=== PATIENT | female | born 1940 | race African-American/Black ===

== ENCOUNTER 2017-05-06 18:03 | Inpatient (IN) | payer OTHER ==
[~2017-05-06] VITALS: Ht 172.7 cm; Wt 103.5 kg
[2017-05-06] VITALS (20 sets, daily range): BP systolic 70–129; BP diastolic 29–78
--- NOTE | ~2017-05-06 | EKG ---
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 : 1940 Requested By: Boaz Resendiz Order Number: [id number] MD: Alban Ignacio Measurements Intervals [place] Rate: 55 P: 21 [place]: 200 QRS: -20 QRSD: 105 T: 9 QT: 438 QTc: 419 Interpretive Statements Sinus rhythm Atrial premature complexes Left ventricular hypertrophy Compared to ECG 02/26/2004 11:19:05 Atrial premature complex(es) now present Left ventricular hypertrophy now present ST (T wave) deviation now present Sinus bradycardia no longer present Poor R-wave progression no longer present Electronically Signed On 05-06-2017 21:58:50 BUSINESS CONTINUITY SPECIALIST by Alban Ignacio [email or web address] <ELECTRONICALLY SIGNED> By: Alban Ignacio MD 05/06/17 2158 [id number] 20 Alban Ignacio MD /EPI
--- NOTE | ~2017-05-06 | HC ---
[facility] [place] [address] CONSULTATION Name: SHARRON DIETRICH Room #: 243-P ADM IN M.R.#: [id number] Admission: 05/06/17 Attend Phys: Vic Munguia MD Discharge: Date of : 42 Report #: [id number] THIS REPORT FOR: //name// CC: Boaz Munguia MD DATE OF SERVICE: 05/07/2017 REFERRING PROVIDER: Dr. Vic Munguia. REASON FOR CONSULTATION: Severe sepsis. CHIEF COMPLAINT: Altered mental status. HISTORY OF PRESENT ILLNESS: Our group was asked to evaluate this patient in consultation while hospitalized at [facility]. She is unable to give any history. History taken from review of records, discussion with healthcare providers, a 76-year-old woman recently hospitalized here 1 month ago, presented to the Emergency Department from her longterm facility for altered mental status. The patient apparently may have been having some nausea and vomiting. Initially admitted for possible urinary tract infection with severe sepsis. The patient noted to be hypotensive in the Emergency Department but without an elevated lactate level. Chest radiograph was clear because of altered mental status. A CT scan of the head was performed which revealed no acute process. Apparently overnight, has been resuscitated with IV fluids with some improvement in overall renal function, stable lactate, but still requiring some low amount of IV vasopressors to maintain reasonable blood pressure. The patient never developed bandemia to this point. ALLERGIES: INCLUDE HYDROCODONE, NONSTEROIDAL ANTI-INFLAMMATORIES, PSEUDOEPHEDRINE. PAST MEDICAL HISTORY: 1. Diabetes mellitus type 2. 2. Diabetic nephropathy. 3. Hypertension. 4. Obesity. 5. Chronic renal insufficiency. PAST SURGICAL HISTORY: Includes tubal ligation, left knee arthroplasty. SOCIAL HISTORY: Not currently obtainable due to current status. FAMILY HISTORY: Unobtainable due to current status. [facility] [address] [place] [address] CONSULTATION Name: SHARRON DIETRICH Room #: 243-P [facility] IN [facility].#: [id number] Admission: 05/06/17 Attend Phys: Vic Munguia MD Discharge: Date of : 42 Report #: [id number] REVIEW OF SYSTEMS: Otherwise, unobtainable due to current status, although she denies any pain. PHYSICAL EXAMINATION: VITAL SIGNS: Afebrile, pulse 60, respiratory rate 12, blood pressure 140/50, oxygen saturation 100% on nasal cannula. GENERAL: This is an obese, elderly woman, does not appear in any distress, awake but confused. ENT: Clear oropharynx, Mallampati 3 airway. No oral lesions. NECK: Supple, no lymphadenopathy, no thyromegaly. LUNGS: Diminished with minimal left basilar crackles. No wheezes. CARDIOVASCULAR: Heart was regular. No murmurs noted. ABDOMEN: Soft, nontender, no masses, no hepatosplenomegaly. EXTREMITIES: Warm with no significant edema. 2+ pulses were noted. INTEGUMENT: No significant rash noted. LABORATORY DATA: Sodium 137, potassium 5.0, chloride 108, bicarbonate 20, BUN 74, creatinine 2.8, glucose 184. Albumin 1.9. INR 1.2. CBC revealed white blood cell count 9600, hemoglobin 10, hematocrit 32, platelet count 168. Urinalysis with a greater than 25 white blood cells per high power field, arterial blood gas this morning on BiPAP revealed pH 7.29, pCO2 of 36, pO2 136, bicarbonate 17. Reviewing the laboratories, TSH in March was 3.37. IMPRESSION: 1. Systemic inflammatory response syndrome, presumed secondary to urosepsis. 2. Urinary tract infection. 3. Confusion, unclear what baseline is. 4. Metabolic acidosis without lactate elevation with an appropriate respiratory component suggesting some underlying hypoventilation as well, likely due to current status. 5. Acute renal insufficiency. SUGGESTIONS: 1. Antibiotics per Infectious Disease service. 2. Continue with sepsis protocol. 3. Check echocardiogram. 4. Titrate FiO2. 5. Follow up arterial blood gases. 6. Neurology repeat evaluation. 7. Echocardiogram. 8. Continue with IV fluids. There is nothing to suggest any underlying pulmonary edema. 9. Central venous access. 10. [place] [address] CONSULTATION Name: SHARRON DIETRICH Room #: 243-P [facility] IN M.R.#: [id number] Admission: 05/06/17 Attend Phys: Vic Munguia MD Discharge: Date of : 42 Report #: [id number] Total critical care time 40 minutes, not including procedures, discussed with nursing and Dr. Boaz Farris. By: [id number] Sam Koroma MD /nt
--- NOTE | ~2017-05-06 | HC ---
[facility] [place] [address] CONSULTATION Name: SHARRON DIETRICH Room #: 243-P [facility] IN M.R.#: [id number] Admission: 05/06/17 Attend Phys: Vic Munguia MD Discharge: Date of : 42 Report #: [id number] THIS REPORT FOR: //name// CC: Dex Munguia REASON FOR CONSULTATION: I was asked to evaluate concerning septic shock. HISTORY OF PRESENT ILLNESS: The patient was a 76-year-old [facility] resident who was hospitalized here on 03/23/2017 with hypertensive encephalopathy and seizure disorder. She does have underlying dementia. She also had paraproteinemia. [facility] following her [facility]. Last evening, was noted to have some nausea and vomiting. No other complaints. Presented through the emergency room with encephalopathy. Her oxygen saturation was adequate on 2 liters of O2 supplementation. No active seizures were identified. No further vomiting. She had decreased urine output. Received IV fluid resuscitation and transferred to the intensive care unit. She has been on low dose Levophed overnight. Urine output has been low. Mental status has improved. She has had loose nonproductive cough. No further nausea or vomiting. ALLERGIES: PSEUDOEPHEDRINE, HYDROCODONE, NONSTEROIDAL ANTI-INFLAMMATORIES. MEDICATIONS: As noted on her MAR, now on vancomycin and Zosyn. She did receive one dose of Levaquin. PAST MEDICAL HISTORY: Hypertension, diabetes, hyperlipidemia, nephrotic syndrome, left total knee arthroplasty. FAMILY HISTORY: Noncontributory. SOCIAL HISTORY: [facility] resident, otherwise no further details. REVIEW OF SYSTEMS: As noted above. PHYSICAL EXAMINATION: VITAL SIGNS: Currently afebrile and hemodynamically stable. GENERAL: She was arousable and able to follow simple commands. She was confused. Obese. SKIN: Unremarkable. LYMPH: Unremarkable. HEENT: Unremarkable. NECK: Supple. LUNGS: Few crackles in the left base posteriorly. HEART: Regular, without murmur. ABDOMEN: Soft, nontender, no hepatosplenomegaly or mass. She had indwelling Leonard catheter. [facility] [address] [place] [address] CONSULTATION Name: SHARRON DIETRICH Room #: 243-P [facility] IN .R.#: [id number] Admission: 05/06/17 Attend Phys: Vic Munguia MD Discharge: Date of : 42 Report #: [id number] EXTREMITIES: Unremarkable. LABORATORY STUDIES: Sodium 137, potassium 5, bicarbonate 21, creatinine 2.8. Liver function tests normal. INR 1.2. Hemoglobin 10, platelet count 168,000, WBC 9.6, 33% segs, 21% bands. Procalcitonin was 0.36. Urinalysis, pyuria and bacteriuria. Blood and urine cultures are pending. Lactate was 1.1. pO2 on 2 liters was 136, pCO2 35, pH 7.28. Chest x-ray was clear. Ultrasound of the kidneys is pending. IMPRESSION AND PLAN: A 76-year-old [facility] resident with septic shock, likely related to urinary tract infection. She has encephalopathy, but no evidence of seizure disorder. She is actually more alert and responsive than when I saw her last. She may have aspirated and will need followup chest x-ray to further evaluate this. Recommend continuing IV antibiotic therapy with vancomycin and Zosyn adjusted for her acute renal failure. We will follow her creatinine and nephrology recommendations. We will adjust her antibiotics pending culture results. <ELECTRONICALLY SIGNED> By: Boaz Farris MD 05/08/17 0737 0842 1854 Boaz Farris MD /nt
--- NOTE | ~2017-05-06 | HC ---
[facility] [place] [address] CONSULTATION Name: SHARRON DIETRICH Room #: 202-P ADM IN M.R.#: [id number] Admission: 05/06/17 Attend Phys: Vic Munguia MD Discharge: Date of : 42 Report #: [id number] THIS REPORT FOR: //name// CC: Dex Munguia DATE OF SERVICE: 05/07/2017 REASON FOR CONSULTATION: Alwxy-ur-sdyfsrp kidney disease. HISTORY OF PRESENT ILLNESS: The patient is quite well known to our service, was seen and followed during her most recent hospitalization here in February and March of this year. She had previously been hospitalized at [facility] with a dramatic illness characterized by dramatic change in mental status, which had been more or less of subacute. She was felt to have either meningitis or encephalitis, possibly later and never did recover from that illness. She ended up with a PEG tube had feedings. She became alert, but not oriented, very very marginal mental status. She was eventually discharged to a facility, urinary catheter in place, apparently has had deterioration over the last couple of days, was taken to the emergency room, found to have urinary tract infection with marked hypotension, felt to be septic, admitted to ICU. She was given 3 liters of IV fluids initially, given fluids and antibiotics, appropriate cultures were taken. She was seen in the ER. Baseline creatinine 1.82, she was up to 3.7, now coming down. Also had mild hyperkalemia. PAST MEDICAL HISTORY: She has no biopsy-proven nephrotic range diabetic nephropathy for many years, but has been remarkably stable. She has had hypertension and morbid obesity, apparently had reasonably normal mental status before this illness which occurred earlier this full. SOCIAL HISTORY: Living at home previously and now in a facility. No cigarettes or alcohol. REVIEW OF SYSTEMS: Cannot be taken due to her chronic confusion. FAMILY HISTORY: Noncontributory. PHYSICAL EXAMINATION: GENERAL: Overweight and confused patient, appears a bit anxious. SKIN: Unremarkable. SKELETAL: Rather obese, well developed, well nourished. HEENT: Extraocular movements appear to be full. No scleral icterus was present. Hearing and vision appeared to be intact. Mucous membranes dry. NECK: Supple without neck vein distention. [facility] [address] [place] [address] CONSULTATION Name: SHARRON DIETRICH Room #: 202-P [facility] IN M.R.#: [id number] Admission: 05/06/17 Attend Phys: Vic Munguia MD Discharge: Date of : 42 Report #: [id number] CHEST: Shows slightly coarse breath sounds. HEART: Regular but distant. ABDOMEN: Soft and nontender. PEG tube in place. EXTREMITIES: Show no peripheral edema. Warm and dry. Peripheral pulses are diminished. LABORATORY DATA: Hemoglobin is 10.1, white count 9.6. She did have 21% bands. Urinalysis was quite remarkable with 3+ leukocytes on dipstick, loaded with bacteria as well. Initial blood chemistries showed potassium of 5, creatinine 3.6, BUN 82. Again the creatinine up from baseline of about 1.8. Transaminases were not elevated. ASSESSMENT AND PLAN: 1. Urinary sepsis. She appears to have urinary sepsis with hypotension. She has been appropriately treated with cultures, antibiotics and IV fluids. She has stabilized. She has been given Levophed. Blood pressure has been stabilized, it is being tapered currently. Presumably she will continue to improve and will certainly follow her along with you. 2. Underlying diabetic nephropathy with chronic kidney disease. Treated with several medications. 3. History of seizures, on valproate. 4. Profound mental status deterioration, unknown etiology, over the last couple of months. 5. Remote left total knee replacement. 6. History of peripheral neuropathy from diabetes. <ELECTRONICALLY SIGNED> By: Dean Sterling MD 05/15/17 1237 0651 1205 Dean Sterling MD /nt
--- NOTE | ~2017-05-06 | 2DMMODE ---
[facility] [address] [facility] [place] [address] 2 D/M-MODE ECHOCARDIOGRAM Name: SHARRON DIETRICH Room #: 236-P [facility] IN ..#: [id number] Admission: 05/06/17 Attend Phys: Vic Munguia MD Discharge: Date of : 42 Date of Service: 05/07/17 1348 Report #: [id number] THIS REPORT FOR: //name// APPROVED REPORT Study performed: 05/07/2017 12:18:46 EXAM: Comprehensive 2D, Doppler, and color-flow Echocardiogram Patient Location: ICU Room #: [facility] Status: routine BSA: 2.15 BP: 140/50 mmHg Other Information Study Quality: Technically Difficult Technically limited study due to inability to position patient, uncooperative patient, patient mental status. Indications Hypotension Diabetes Sepsis 2D Dimensions RVDd: 36.79 mm LVEF(%): 78.81 (>50%) IVSd: 14.21 (7-11mm) LVOT Diam: 21.43 (18-24mm) LVDd: 36.98 mm PWd: 12.67 (7-11mm) Ascending Ao: 30.01 (22-36mm) LVDs: 19.74 (25-40mm) Aortic Root: 33.24 mm IVC: 9.00 mm Stewart's LVEF: 78.81 % Volumes Left Atrial Volume (Systole) Single Plane 4CH: 56.70 mL Single Plane 2CH: 58.50 mL LA ESV Index: 29.00 mL/m2 Aortic Valve AoV Peak Morteza.: 2.20 m/s AO Peak Gr.: 19.34 mmHg LVOT Max P.60 mmHg AO Mean Gr.: 9.03 mmHg LVOT Mean P.70 mmHg AO V2 Mean: 1.41 m/s LVOT Max V: 1.47 m/s [facility] [place] [address] 2 D/M-MODE ECHOCARDIOGRAM Name: SHARRON DIETRICH Room #: 236-P [facility]..#: [id number] Admission: 05/06/17 Attend Phys: Vic Munguia MD Discharge: Date of : 42 Date of Service: 05/07/17 1348 Report #: [id number] V2 VTI: 43.83 cm LVOT Mean V: 0.87 m/s MORGAN (VTI): 2.89 cm2 LVOT V1 VTI: 35.16 cm MORGAN Vmax: 2.40 cm2 SV (LVOT): 126.76 mL Mitral Valve E/A Ratio: 0.8 MV Decel. Time: 294.21 ms MV E Max Morteza.: 1.21 m/s MV A Morteza.: 1.44 m/s MV PHT: 85.32 ms IVRT: 86.51 ms Pulmonary Valve PV Peak Morteza.: 1.70 m/s PV Peak Gr.: 11.53 mmHg Pulmonary Vein P Vein S: 0.88 m/s P Vein A: 0.21 m/s P Vein D: 0.49 m/s P Vein A Dur.: 124.6 msec P Vein S/D Ratio: 1.80 Tricuspid Valve TR Peak Morteza.: 2.93 m/s RAP Estimate: 5.00 mmHg TR Peak Gr.: 34.37 mmHg Left Ventricle The left ventricle is normal size. Mild concentric left ventricular hypertrophy. The left ventricular systolic function is normal. The left ventricular ejection fraction is within the normal range. LVEF is 60%. Mild diastolic dysfunction is present (impaired relaxation pattern). Right Ventricle Right ventricle is mildly dilated. Right ventricular systolic function could not be assessed. Atria Left atrium is at the upper limits of normal. The right atrium size is normal. Aortic Valve The aortic valve is normal in structure. No aortic regurgitation is present. There is no aortic valvular stenosis. Mitral Valve The mitral valve is normal in structure. Trace to mild mitral [facility] [address] [place] [address] 2 D/M-MODE ECHOCARDIOGRAM Name: SHARRON DIETRICH Room #: 236-P [facility] IN M.R.#: [id number] Admission: 05/06/17 Attend Phys: Vic Munguia MD Discharge: Date of : 42 Date of Service: 05/07/17 1348 Report #: [id number] regurgitation. No evidence of mitral valve stenosis. Tricuspid Valve The tricuspid valve is normal in structure. Mild tricuspid regurgitation. PAP is estimated at 39 mmHg. Pulmonic Valve The pulmonary valve is normal in structure. Trace pulmonic regurgitation. Great Vessels The aortic root is normal in size. IVC is normal in size and collapses >50% with inspiration. Pericardium Hemodynamically insignificant pericardial effusion. <Conclusion> The left ventricle is normal size. LVEF is 60%. Right ventricle is mildly dilated. Left atrium is at the upper limits of normal. The aortic valve is normal in structure. The mitral valve is normal in structure. Trace to mild mitral regurgitation. The tricuspid valve is normal in structure. Mild tricuspid regurgitation. PAP is estimated at 39 mmHg. The pulmonary valve is normal in structure. Trace pulmonic regurgitation. Hemodynamically insignificant pericardial effusion. <ELECTRONICALLY SIGNED> By: Jeb Gonzalez MD 05/07/17 1348 1348 1348 Jeb Gonzalez MD /INF
[~2017-05-06 18:03] MED LIST: ALDACTONE25 MG PO; ASPIRIN81 M2 PO; COMPAZINE25 MG RECTAL; COREG25 MG PO; DEPACON 50500 MG/51 IV; DEPAKOTE 250MG250 M1 IV; DIOVAN320 MG PO; EFFEXOR XR37.5 MG PO; ENOXAPARIN30 MG/0.1 SUBQ; FAMOTIDINE 20 M20 MG PO; FELODIPINE ER10 MG PER TUBE; GABAPENTIN 100100 MG PO; HUMALOG100 UNIT/1 SUBQ; HYDRALAZIN20 MG/1 ML IV; LABETALOL20 MG/4 ML IV; LAXATIVE5 M1 PO; LEVEMIR SUBQ; LIPITOR 20 MG T20 M1 PO; NOVOLOG100 UNIT/1 SUBQ; NYAMYC15 GM TOP; PERCOCET 7.5-31 EACH PO; PIOGLITAZONE15 MG PO; VITAMIN D3400 UNIT PO
[2017-05-06 18:33] LABS: HEMOGLOBIN 9.7 gm/dL (12.0-15.0); MCH 28.6 pg (26.0-34.0); MCHC 32.2 g/dL (28.0-37.0); MCV 88.9 fL (80.0-100.0); PLATELET COUNT 172 thou/uL (150-400); RBC 3.38 mil/uL (4.20-5.00); RDW 16.9 % (10.5-14.5); WBC 8.4 thou/uL (4.0-11.0)
[2017-05-06 18:34] LABS: MANUAL DIFF YES
[2017-05-06 18:46] LABS: ANION GAP 7 mmol/L (7-16); BUN 82 mg/dL (7-18); CHLORIDE 104 mmol/L (98-107); CO2 25 mmol/L (21-32); CREATININE 3.6 mg/dL (0.6-1.0); GLUCOSE 53 mg/dL (74-106); SODIUM 136 mmol/L (136-145)
[2017-05-06 18:53] LABS: URINE BILIRUBIN NEGATIVE (Negative); URINE BLOOD 2+ (Negative); URINE COLOR YELLOW; URINE GLUCOSE-RANDOM* NEGATIVE (Negative); URINE KETONES NEGATIVE (Negative); URINE PROTEIN (DIPSTICK) 2+ (Negative); URINE UROBILINOGEN 0.2 E.U./dl (0.2-1.0)
[2017-05-06 18:54] LABS: ALBUMIN 1.9 g/dL (3.4-5.0); ALKALINE PHOSPHATASE 143 U/L (46-116); MAGNESIUM 2.9 mg/dL (1.8-2.4); SGOT 15 U/L (15-37); SGPT 9 U/L (30-65); TOTAL BILIRUBIN 0.2 mg/dL (<0.1-1.0); TOTAL PROTEIN 6.7 g/dL (6.4-8.2); TROPONIN-I < 0.04 ng/mL (<0.06)
[2017-05-06 18:55] LABS: URINE LEUKOCYTES-REFLEX 3+ (Negative)
[2017-05-06 18:58] LABS: ABSOLUTE NEUTROPHILS 4.5 thou/uL (1.4-8.2); METAMYELOCYTES 3 %; MYELOCYTES 2 %; PROMYELOCYTES 2 %; TOTAL CELL COUNT 100
[2017-05-06 18:59] LABS: ANISOCYTOSIS 1+; LARGE PLATELETS FEW; MICROCYTES SLIGHT; POLYCHROMASIA SLIGHT
[2017-05-06 19:01] LABS: AMP/METHAMP Negative (Negative); BARBITURATES Negative (Negative); BENZODIAZEPINES Negative (Negative); COCAINE Negative (Negative); METHADONE Negative (Negative); OPIATES Negative (Negative); PCP Negative (Negative); THC Negative (Negative)
[2017-05-06 19:04] LABS: SQUAMOUS 0-3 Few /LPF (0-3)
[2017-05-06 19:05] LABS: AMORPHOUS URATES Many /LPF (None Seen); CASTS None Seen /LPF (None Seen); URINE WBC-REFLEX >25 Many /HPF (0-5)
[2017-05-06 21:25] LABS: ABG SAMPLE TYPE ARTERIAL; BE(vivo) -9.3 mmol/L (-2 to +3); HCO3 18.2 mmol/L (22.0-26.0); LACTATE 0.98 mmol/L (0.5-2.0); O2(CT) 12.4 mL/dL (15.0-23.0); O2Hb 90.5 % (92.0-98.0); PCO2 47.1 mmHg (35.0-45.0); PO2 67.2 mmHg (80.0-100.0); sO2 89.1 % (92.0-98.0); tCO2 19.6 mmol/L (24.0-30.0)
[2017-05-06 21:26] LABS: STICK SITE R.RADIAL; pH 7.205 (7.360-7.450)
[2017-05-06 22:59] LABS: CALCIUM 8.2 mg/dL (8.5-10.1)
[2017-05-06 23:09] LABS: FIBRINOGEN 285.4 mg/dL (210-360); INR 1.2
[2017-05-06 23:48] LABS: ABG SAMPLE TYPE ARTERIAL; BE(vivo) -11.1 mmol/L (-2 to +3); HCO3 15.9 mmol/L (22.0-26.0); LACTATE 1.03 mmol/L (0.5-2.0); O2(CT) 14.1 mL/dL (15.0-23.0); O2Hb 95.8 % (92.0-98.0); PO2 106.5 mmHg (80.0-100.0); sO2 96.9 % (92.0-98.0); tCO2 17.2 mmol/L (24.0-30.0)
[2017-05-06 23:50] LABS: FIO2 30 %; STICK SITE R.RADIAL; TIDAL VOLUME 500 ml; pH 7.218 (7.360-7.450)
[2017-05-07] VITALS (52 sets, daily range): BP systolic 82–166; BP diastolic 43–105
[2017-05-07 02:37] LABS: HEMATOCRIT 32.4 % (37.0-47.0); HEMOGLOBIN 10.1 gm/dL (12.0-15.0); MCH 28.2 pg (26.0-34.0); MCHC 31.1 g/dL (28.0-37.0); MCV 90.6 fL (80.0-100.0); PLATELET COUNT 168 thou/uL (150-400); RBC 3.57 mil/uL (4.20-5.00); RDW 16.6 % (10.5-14.5); WBC 9.6 thou/uL (4.0-11.0)
[2017-05-07 02:43] LABS: CREATININE 2.8 mg/dL (0.6-1.0); MANUAL DIFF YES; POTASSIUM 5.3 mmol/L (3.5-5.1)
[2017-05-07 02:49] LABS: APTT 31.2 Seconds (24.5-32.8); FIBRINOGEN 338.1 mg/dL (210-360); INR 1.2; PROTIME 12.3 Seconds (9.3-11.4)
[2017-05-07 05:51] LABS: ABG SAMPLE TYPE ARTERIAL; BE(vivo) -9.3 mmol/L (-2 to +3); HCO3 16.5 mmol/L (22.0-26.0); LACTATE 1.14 mmol/L (0.5-2.0); O2(CT) 14.1 mL/dL (15.0-23.0); O2Hb 97.1 % (92.0-98.0); PCO2 35.5 mmHg (35.0-45.0); PO2 136.3 mmHg (80.0-100.0); sO2 98.4 % (92.0-98.0); tCO2 17.6 mmol/L (24.0-30.0)
[2017-05-07 05:52] LABS: pH 7.285 (7.360-7.450)
[2017-05-07 05:53] LABS: FIO2 30 %; STICK SITE R.BRACHIAL; TIDAL VOLUME 340 ml
[2017-05-07 07:53] LABS: CALCIUM 8.2 mg/dL (8.5-10.1); CREATININE 2.8 mg/dL (0.6-1.0)
[2017-05-07 08:01] LABS: APTT 30.6 Seconds (24.5-32.8); FIBRINOGEN 326.2 mg/dL (210-360); INR 1.2; PROTIME 12.4 Seconds (9.3-11.4)
[2017-05-07 08:10] LABS: ABSOLUTE NEUTROPHILS 7.3 thou/uL (1.4-8.2); METAMYELOCYTES 5 %; MYELOCYTES 2 %; TOTAL CELL COUNT 100
[2017-05-07 08:11] LABS: ANISOCYTOSIS 1+
[2017-05-07 18:00] LABS: ABG SAMPLE TYPE ARTERIAL; BE(vivo) -11.4 mmol/L (-2 to +3); HCO3 13.8 mmol/L (22.0-26.0); LACTATE 1.23 mmol/L (0.5-2.0); O2(CT) 14.1 mL/dL (15.0-23.0); O2Hb 93.8 % (92.0-98.0); PCO2 29.1 mmHg (35.0-45.0); PO2 74.8 mmHg (80.0-100.0); pH 7.294 (7.360-7.450); sO2 93.8 % (92.0-98.0); tCO2 14.7 mmol/L (24.0-30.0)
[2017-05-07 18:01] LABS: STICK SITE R.BRACHIAL
[2017-05-08] VITALS (15 sets, daily range): BP systolic 109–162; BP diastolic 48–118
[2017-05-08 04:57] LABS: HEMATOCRIT 28.6 % (37.0-47.0); HEMOGLOBIN 9.1 gm/dL (12.0-15.0); MCH 28.5 pg (26.0-34.0); MCHC 31.9 g/dL (28.0-37.0); MCV 89.1 fL (80.0-100.0); PLATELET COUNT 164 thou/uL (150-400); RBC 3.21 mil/uL (4.20-5.00); RDW 16.9 % (10.5-14.5); WBC 10.4 thou/uL (4.0-11.0)
[2017-05-08 05:06] LABS: ALBUMIN 1.5 g/dL (3.4-5.0); CALCIUM 8.4 mg/dL (8.5-10.1); CREATININE 2.3 mg/dL (0.6-1.0); MANUAL DIFF YES; POTASSIUM 5.1 mmol/L (3.5-5.1)
[2017-05-08 07:31] LABS: ANISOCYTOSIS 1+; METAMYELOCYTES 3 %; MYELOCYTES 4 %; TOTAL CELL COUNT 100
[2017-05-08 07:33] LABS: POLYCHROMASIA OCCASIONAL
[2017-05-09 03:54] VITALS: BP 142/73
[2017-05-09 05:30] LABS: HEMATOCRIT 26.4 % (37.0-47.0); HEMOGLOBIN 8.7 gm/dL (12.0-15.0); MCH 28.4 pg (26.0-34.0); MCHC 32.8 g/dL (28.0-37.0); MCV 86.6 fL (80.0-100.0); RBC 3.05 mil/uL (4.20-5.00); RDW 16.8 % (10.5-14.5); WBC 8.8 thou/uL (4.0-11.0)
[2017-05-09 05:42] LABS: ALBUMIN 1.4 g/dL (3.4-5.0); CALCIUM 8.4 mg/dL (8.5-10.1); CREATININE 1.9 mg/dL (0.6-1.0)
[2017-05-09 07:25] VITALS: BP 197/95
[2017-05-09 11:35] VITALS: BP 181/63
[2017-05-09 16:10] VITALS: BP 188/109
[2017-05-09 20:15] VITALS: BP 175/74
[2017-05-10 00:15] VITALS: BP 178/80
[2017-05-10 05:22] LABS: ALBUMIN 1.4 g/dL (3.4-5.0); CALCIUM 8.9 mg/dL (8.5-10.1); CREATININE 1.5 mg/dL (0.6-1.0); PHOSPHORUS 1.7 mg/dL (2.5-4.9); POTASSIUM 3.5 mmol/L (3.5-5.1)
[2017-05-10 05:30] VITALS: BP 146/69
[2017-05-10 07:30] VITALS: BP 132/79
[2017-05-10 09:10] LABS: HEMATOCRIT 28.4 % (37.0-47.0); HEMOGLOBIN 9.2 gm/dL (12.0-15.0); MCH 28.5 pg (26.0-34.0); MCHC 32.4 g/dL (28.0-37.0); MCV 87.7 fL (80.0-100.0); PLATELET COUNT 167 thou/uL (150-400); RBC 3.24 mil/uL (4.20-5.00); RDW 17.5 % (10.5-14.5); WBC 8.2 thou/uL (4.0-11.0)
[2017-05-10 09:12] LABS: MANUAL DIFF YES
[2017-05-10 09:47] LABS: ABSOLUTE NEUTROPHILS 5.9 thou/uL (1.4-8.2); METAMYELOCYTES 3 %; NUCLEATED RBCS 1 /100WBC; TOTAL CELL COUNT 100
[2017-05-10 09:48] LABS: ANISOCYTOSIS 2+; HYPOCHROMASIA 1+; POLYCHROMASIA SLIGHT
[2017-05-10 12:00] VITALS: BP 178/74
[2017-05-10 15:10] VITALS: BP 145/55
[2017-05-10 19:18] VITALS: BP 150/61
[2017-05-11 04:17] VITALS: BP 158/61
[2017-05-11 05:12] LABS: HEMATOCRIT 26.9 % (37.0-47.0); HEMOGLOBIN 8.6 gm/dL (12.0-15.0); MCH 27.9 pg (26.0-34.0); MCHC 32.1 g/dL (28.0-37.0); MCV 86.8 fL (80.0-100.0); RBC 3.1 mil/uL (4.20-5.00); RDW 17.1 % (10.5-14.5); WBC 8.8 thou/uL (4.0-11.0)
[2017-05-11 05:45] LABS: ALBUMIN 1.4 g/dL (3.4-5.0); CALCIUM 8.3 mg/dL (8.5-10.1); CREATININE 1.4 mg/dL (0.6-1.0); PHOSPHORUS 2.7 mg/dL (2.5-4.9); POTASSIUM 4.1 mmol/L (3.5-5.1)
[2017-05-11 07:10] VITALS: BP 163/75
[2017-05-11 12:00] VITALS: BP 159/75
[2017-05-11 19:52] VITALS: BP 145/62
[2017-05-12 03:04] VITALS: BP 124/58
[2017-05-12 04:55] LABS: HEMOGLOBIN 9.3 gm/dL (12.0-15.0); MCH 27.8 pg (26.0-34.0); MCV 86.9 fL (80.0-100.0); RBC 3.34 mil/uL (4.20-5.00); RDW 17.3 % (10.5-14.5); WBC 11.4 thou/uL (4.0-11.0)
[2017-05-12 05:17] LABS: ALBUMIN 1.5 g/dL (3.4-5.0); CALCIUM 8.4 mg/dL (8.5-10.1); CREATININE 1.5 mg/dL (0.6-1.0); PHOSPHORUS 2.6 mg/dL (2.5-4.9); POTASSIUM 4.5 mmol/L (3.5-5.1)
[2017-05-12 07:20] VITALS: BP 145/77
[2017-05-12 11:46] VITALS: BP 150/63
[2017-05-12 15:00] VITALS: BP 146/72
[2017-05-12 19:16] VITALS: BP 121/54
[2017-05-13 03:33] VITALS: BP 151/57
[2017-05-13 06:10] LABS: ALBUMIN 1.5 g/dL (3.4-5.0); CALCIUM 8.6 mg/dL (8.5-10.1); CREATININE 1.4 mg/dL (0.6-1.0); MAGNESIUM 1.6 mg/dL (1.8-2.4); PHOSPHORUS 3.1 mg/dL (2.5-4.9); POTASSIUM 4.4 mmol/L (3.5-5.1)
[2017-05-13 07:11] LABS: TSH 2.509 uIU/mL (0.358-3.740)
[2017-05-13 08:28] VITALS: BP 146/61
[2017-05-13 11:04] VITALS: BP 136/114
[2017-05-13 15:48] VITALS: BP 137/58
[2017-05-13 19:45] VITALS: BP 127/52
[2017-05-14 04:30] VITALS: BP 111/77
[2017-05-14 04:40] LABS: ALBUMIN 1.6 g/dL (3.4-5.0); CALCIUM 8.8 mg/dL (8.5-10.1); CREATININE 1.5 mg/dL (0.6-1.0); PHOSPHORUS 2.5 mg/dL (2.5-4.9); POTASSIUM 4.1 mmol/L (3.5-5.1)
[2017-05-14 08:00] VITALS: BP 161/92
[2017-05-14 11:07] VITALS: BP 139/60
[2017-05-14 16:00] VITALS: BP 119/46
[2017-05-14 19:45] VITALS: BP 127/54
[2017-05-15 04:30] VITALS: BP 135/41
[2017-05-15 05:17] LABS: ALBUMIN 1.5 g/dL (3.4-5.0); CALCIUM 8.6 mg/dL (8.5-10.1); CREATININE 1.7 mg/dL (0.6-1.0); PHOSPHORUS 3.1 mg/dL (2.5-4.9); POTASSIUM 4.4 mmol/L (3.5-5.1)
[2017-05-15 07:19] VITALS: BP 115/77
[2017-05-15 11:28] VITALS: BP 152/51
[2017-05-15 16:40] VITALS: BP 157/76
[2017-05-15 20:30] VITALS: BP 127/57
[2017-05-16 00:15] VITALS: BP 159/67
[2017-05-16 04:30] VITALS: BP 139/62
[2017-05-16 07:46] VITALS: BP 135/58
[2017-05-16 11:51] VITALS: BP 132/48
[2017-05-16 21:40] VITALS: BP 118/38
[2017-05-17 04:54] LABS: CALCIUM 8.7 mg/dL (8.5-10.1); CREATININE 1.6 mg/dL (0.6-1.0); POTASSIUM 4.4 mmol/L (3.5-5.1)
[2017-05-17 09:00] VITALS: BP 132/63
[2017-05-17 18:13] VITALS: BP 108/50
[2017-05-17 19:51] VITALS: BP 127/53
[2017-05-18 03:23] VITALS: BP 120/52
[2017-05-18 12:01] VITALS: BP 128/62
[2017-05-18 15:54] VITALS: BP 134/61
[2017-05-18] MEDS ORDERED: VANCOMYCIN HCL10 GM PO (16:16)
[2017-05-18] MEDS ORDERED: HUMALOG100 UNIT/1 SUBQ (16:16)
[2017-05-18] MEDS ORDERED: FLORANEX GRANU1 EACH PER TUBE (16:16)
[2017-05-18] MEDS ORDERED: GLUCAGON HCL1 MG IM (16:16)
[2017-05-18] MEDS ORDERED: PERCOCET 7.5-31 EACH PO (16:16)
[2017-05-18 18:04] VITALS: BP 134/61
== END 2017-05-18 18:56 | DRG 871 ==
LOC: ER 18:03 → EROBS 19:38 → ICU 19:38 → 2N 05-08 18:23
PROVIDERS: Emergency Medicine; Hospitalist; Internal Medicine Geriatric Medicine; Internal Medicine Nephrology; Internal Medicine Pulmonary Disease; Nurse Practitioner Family
PROC: 5A09357 Assistance with Respiratory Ventilation, Less than 24 Consecutive Hours, Continuous Positive Airway Pressure (ICD-10-PCS; principal; 2017-05-07)
PROC: 02HV33Z Insertion of Infusion Device into Superior Vena Cava, Percutaneous Approach (ICD-10-PCS; principal; 2017-05-07)
DX: A41.9 Sepsis, unspecified organism (principal); R65.21 Severe sepsis with septic shock; G93.41 Metabolic encephalopathy; E43 Unspecified severe protein-calorie malnutrition; N39.0 Urinary tract infection, site not specified; N17.9 Acute kidney failure, unspecified; E87.2 Acidosis; E87.0 Hyperosmolality and hypernatremia; A04.72 Enterocolitis due to Clostridium difficile, not specified as recurrent; I12.0 Hypertensive chronic kidney disease with stage 5 chronic kidney disease or end stage renal disease; E78.5 Hyperlipidemia, unspecified; E11.21 Type 2 diabetes mellitus with diabetic nephropathy; E11.649 Type 2 diabetes mellitus with hypoglycemia without coma; E66.01 Morbid (severe) obesity due to excess calories; Z68.34 Body mass index [BMI] 34.0-34.9, adult; E11.42 Type 2 diabetes mellitus with diabetic polyneuropathy; I95.9 Hypotension, unspecified; N18.3 Chronic kidney disease, stage 3 (moderate); E11.22 Type 2 diabetes mellitus with diabetic chronic kidney disease; D64.9 Anemia, unspecified; E87.5 Hyperkalemia; E83.39 Other disorders of phosphorus metabolism; D47.2 Monoclonal gammopathy; R13.10 Dysphagia, unspecified; E83.41 Hypermagnesemia; F03.90 Unspecified dementia, unspecified severity, without behavioral disturbance, psychotic disturbance, mood disturbance, and anxiety; Z23 Encounter for immunization; Z88.6 Allergy status to analgesic agent; Z88.8 Allergy status to other drugs, medicaments and biological substances; Z98.49 Cataract extraction status, unspecified eye
CPT/HCPCS: 10078; 10081; 27000

== ENCOUNTER 2017-06-29 08:52 | Inpatient (IN) | payer OTHER ==
[~2017-06-29] VITALS: Ht 167.6 cm; Wt 99.2 kg
[2017-06-29] VITALS (34 sets, daily range): BP systolic 76–151; BP diastolic 34–84
--- NOTE | ~2017-06-29 | EKG ---
[address] [place] [address] ELECTROCARDIOGRAM REPORT Name: SHARRON DIETRICH Room #: 170-5 ADM IN M.R.#: [id number] Admission: 06/29/17 Attend Phys: Dex Anderson DO Discharge: Date of : 42 Report #: [id number] THIS REPORT FOR: //name// [facility] ED Test Date: 2017-06-29 Test Time: 10:47:10 Pat Name: SHARRON DIETRICH Department: Room: 170 Gender: F Lead Cook: SIXTO : 1940 Requested By: Syed Miramontes Order Number: [id number] MD: Alban Ignacio Measurements Intervals [place] Rate: 82 P: 48 [place]: 180 QRS: -25 QRSD: 100 T: 67 QT: 352 QTc: 411 Interpretive Statements Sinus rhythm Borderline left axis deviation Compared to ECG 05/06/2017 18:21:46 Atrial premature complex(es) no longer present Left ventricular hypertrophy no longer present Electronically Signed On 06-29-2017 11:08:14 ALUM MIXER by Alban Ignacio [email or web address] <ELECTRONICALLY SIGNED> By: Alban Ignacio MD 06/29/17 1108 1047 1047 Alban Ignacio MD /DAY
--- NOTE | ~2017-06-29 | HC ---
[facility] [place] [address] CONSULTATION Name: SHARRON DIETRICH Room #: 247-P [facility] IN M.R.#: [id number] Admission: 06/29/17 Attend Phys: Dex Anderson DO Discharge: Date of : 42 Report #: [id number] THIS REPORT FOR: //name// CC: Dex Anderson DATE OF SERVICE: 06/29/2017 REFERRING PROVIDER: Dr. Dex Anderson. REASON FOR CONSULTATION: Respiratory failure. HISTORY OF PRESENT ILLNESS: Our group was asked to see the patient in consultation while hospitalized at [facility]. The patient on mechanical ventilator, unable to give any history. This 76-year-old woman without any significant past pulmonary history, apparently has a history of chronic dysphagia, has a feeding tube in place, had been lethargic, vomiting in the Emergency Department, possibly even aspirating. The patient was subsequently intubated and is now on mechanical ventilatory support, receiving IV fluid, starting to be more arousable, but not following commands, noted to be in acute renal insufficiency in the Emergency Department. No other history is able to be obtained from the patient at this time. Rest of the history taken from review of the records. ALLERGIES: INCLUDE PSEUDOEPHEDRINE, SULFA, HYDROCODONE, NONSTEROIDAL ANTI-INFLAMMATORIES. PAST MEDICAL HISTORY: 1. Diabetes mellitus type 2. 2. Anemia. 3. History of dysphagia. 4. Hyperlipidemia. 5. Chronic renal insufficiency. 6. Hypertension. OUTPATIENT MEDICATIONS: Include Depakote, aspirin, atorvastatin, carvedilol, Pepcid, gabapentin, oxycodone, Effexor, and vitamin E. SOCIAL HISTORY: The patient currently is a resident of a long-term care facility. No alcohol or tobacco use known. FAMILY HISTORY: Unobtainable. REVIEW OF SYSTEMS: Otherwise unobtainable. PHYSICAL EXAMINATION: VITAL SIGNS: The patient is afebrile, pulse 70s, respiratory rate 16, blood [facility] [address] [place] [address] CONSULTATION Name: SHARRON DIETRICH Room #: [facility] IN [facility].#: [id number] Admission: 06/29/17 Attend Phys: Dex Anderson DO Discharge: Date of : 42 Report #: [id number] pressure 90/40. GENERAL: This is an elderly woman on vent, arousable, no distress. ENT: Endotracheal tube in place. NECK: Supple, no lymphadenopathy. LUNGS: Coarse rhonchi, improved with suctioning. CARDIOVASCULAR: Heart regular. No murmurs or gallops. ABDOMEN: Soft. PEG tube in place. No masses. EXTREMITIES: With muscular atrophy noted, only trace edema. LABORATORY DATA: White blood cell count 14,000, hemoglobin 12, hematocrit 32, platelet count 155. Sodium 128, potassium 5.7, chloride 96, bicarbonate 22, BUN 61, creatinine 3.4, glucose 323. IMAGING: Chest x-ray reveals endotracheal tube in good position. Some patchy bilateral pulmonary infiltrates also appreciated, suggested to be either possible aspiration or pneumonia. Rapid influenza screen is negative. IMPRESSION: 1. Pneumonia, possible aspiration. 2. Acute respiratory failure. 3. Altered mental status. 4. Acute renal insufficiency, likely volume depletion. 5. Nausea, vomiting, question acute abdominal process, but nothing on exam. SUGGESTIONS: 1. Antibiotics per infectious disease service. 2. IV fluids. 3. Bronchodilators. 4. Await cultures. 5. Follow up arterial blood gas in a.m. and x-ray. Thank you for requesting our suggestions. <ELECTRONICALLY SIGNED> By: Sam Koroma MD 07/03/17 1726 2120 0033 Sam Koroma MD /nt
--- NOTE | ~2017-06-29 | HC ---
[facility] [place] [address] CONSULTATION Name: SHARRON DIETRICH Room #: 247-P [facility] IN M.R.#: [id number] Admission: 06/29/17 Attend Phys: Dex Anderson, DO Discharge: Date of : 42 Report #: [id number] THIS REPORT FOR: //name// CC: Dex Anderson DATE OF SERVICE: 06/30/2017 CHIEF COMPLAINT: Pressure ulceration. HISTORY OF PRESENT ILLNESS: This is a 76-year-old female patient who is seen in the Intensive Care Unit. She was admitted with septic shock and likely aspiration pneumonia. She is unresponsive on a ventilator at this time and not able to provide any information about herself. PAST MEDICAL HISTORY: The patient's past medical history is positive for history of C. diff colitis, history of acute renal failure, hypertension, MGUS, diabetes, hyperlipidemia, left total knee arthroplasty, chronic renal insufficiency, dementia and peripheral neuropathy. FAMILY HISTORY: Noncontributory. SOCIAL HISTORY: The patient lives as longterm resident, otherwise unremarkable. REVIEW OF SYSTEMS: Not able to be obtained due to the patient's unresponsive state. PHYSICAL EXAMINATION: VITAL SIGNS: At this time include pulse rate 63, respiratory rate 15, blood pressure 136/49 and temperature 96.6 axillary. GENERAL: This is a chronically ill-appearing female patient who appears to be unresponsive. HEENT: Head is normocephalic. Nose is clear. Mouth: This patient is orally intubated. NECK: Supple. LUNGS: Diminished. HEART: Regular rhythm. ABDOMEN: Soft, slightly distended and nontender. EXTREMITIES: Lower extremities demonstrate 2+ edema. SKIN: Examination of the skin demonstrates small stage II sacral pressure ulceration. She also has a stage II pressure ulceration involving her right heel and a small excoriation on her left posterior thigh. CLINICAL IMPRESSION: 1. Unresponsiveness and respiratory failure requiring mechanical ventilation. 2. Septic shock. [facility] [address] [place] [address] CONSULTATION Name: SHARRON DIETRICH Room #: 247-P [facility] IN M.R.#: [id number] Admission: 06/29/17 Attend Phys: Dex Anderson, Discharge: Date of : 42 Report #: [id number] 3. Stage II sacral pressure ulcer. 4. Stage II right heel pressure ulceration. 5. Excoriation of left posterior thigh. RECOMMENDATIONS: At this point in time, we will recommend a bordered foam dressing to each of these areas to be changed on a Thursday, Thursday and Thursday basis and as needed. She will need to be turned and repositioned every 2 hours. She will need aggressive nutritional support for ongoing wound healing. Continue all medications. I appreciate being asked to see her in consultation. <ELECTRONICALLY SIGNED> By: Delano Metcalf MD 07/02/17 0856 1816 0131 Delano Metcalf MD /nt
--- NOTE | ~2017-06-29 | HC ---
[facility] [place] [address] CONSULTATION Name: SHARRON DIETRICH Room #: 247-P [facility] IN M.R.#: [id number] Admission: 06/29/17 Attend Phys: Dex Anderson DO Discharge: Date of : 42 Report #: [id number] THIS REPORT FOR: //name// CC: Dex Anderson TYPE OF REPORT: Infectious diseases consultation. REASON FOR CONSULTATION: I was asked to evaluate concerning septic shock. HISTORY OF PRESENT ILLNESS: The patient was a 76-year old recently hospitalized here in April where she was diagnosed with C. difficile colitis. She also had acute renal failure. This was complicating her baseline underlying dementia. She has underlying diabetes and MGUS. She was discharged on oral vancomycin to be taken until stools normalized. I am unclear and her stool output prior to her rehospitalization. This morning was found to have temperature over 102 degrees. She was lethargic. She had aspirated tube feeding. She does have a PEG tube and has been using this to supplement her nutrition. In the Emergency Room, she was lethargic, febrile and hypotensive. She was given IV fluids. She was intubated to protect her airway. An OG tube was placed and put to suction. She has had poor urine output. Now receiving 1 liter bolus of normal saline. Her urine output has picked up a bit at about 25 mL an hour over the last several hours. The patient unable to give any details, however, is awake and responsive. ALLERGIES: PSEUDOEPHEDRINE, HYDROCODONE and NONSTEROIDAL ANTI-INFLAMMATORIES. MEDICATIONS: As noted on her MAR, having received Levaquin and Zosyn in the Emergency Room. PAST MEDICAL HISTORY: Hypertension, nephrotic syndrome, MGUS, diabetes, hyperlipidemia, left total knee arthroplasty, chronic renal insufficiency, left knee arthroplasty, tubal ligation, dementia and peripheral neuropathy. FAMILY HISTORY: Noncontributory. SOCIAL HISTORY: skilled nursing resident, otherwise Unremarkable. REVIEW OF SYSTEMS: There has been no report of abdominal pain. She has small amount of tracheal secretions. Some shearing to her sacral skin. PHYSICAL EXAMINATION: VITAL SIGNS: Temperature 102.6, blood pressure 95/41, MAP of 58 and heart rate 76. The patient was on FiO2 of 50%. GENERAL: She was arousable. She is able to follow simple commands. HEENT: Unremarkable other than orally intubated. NECK: Supple. [facility] [address] [place] [address] CONSULTATION Name: HSARRON DIETRICH Room #: 247-P [facility] IN M.R.#: [id number] Admission: 06/29/17 Attend Phys: Dex Anderson DO Discharge: Date of : 42 Report #: [id number] LUNGS: Coarse breath sounds in both bases. No consolidation. HEART: Regular, without murmur. ABDOMEN: Soft, did not appear tender. PEG site was unremarkable. EXTREMITIES: Unremarkable. NEUROLOGICAL: Nonfocal. LABORATORY STUDIES: Hemoglobin 10.4; WBC 13.9 with 71% segs and 18% lymphs and platelet count 155,000. Sodium 128, potassium 5.7, bicarbonate 22 and creatinine 3.4. Liver function test normal. Lipase 44. Lactate was 2.1. Influenza antigen negative. Urinalysis with pyuria and bacteriuria. Urine culture and blood cultures are pending. RADIOLOGICAL DATA: Chest x-ray, bilateral basilar infiltrates. IMPRESSION: A 76-year old with febrile presentation, septic shock and aspiration pneumonia. I suspect urinary tract source as underlying cause of her sepsis. She has Clostridium difficile colitis history and was recently treated 1 month ago. PLAN: I would recommend obtaining cultures of blood, urine and sputum. Broad antibiotic coverage for healthcare-associated organisms. Also, continue with enteral vancomycin. When tolerable. We will continue fluid resuscitation and I have discussed with nursing staff. She seems to be responding to initial fluid bolus. <ELECTRONICALLY SIGNED> By: Boaz Farris MD 06/30/17 1812 1859 0025 Boaz Farris MD /nt
--- NOTE | ~2017-06-29 | 2DMMODE ---
[facility] [address] [place] [address] 2 D/M-MODE ECHOCARDIOGRAM Name: KARLOSHARRON MENARD Room #: 247-P [facility] IN .R.#: [id number] Admission: 06/29/17 Attend Phys: Dex Anderson, Discharge: Date of : 42 Date of Service: 07/02/17 1047 Report #: [id number] THIS REPORT FOR: //name// APPROVED REPORT Study performed: 07/02/2017 09:04:06 EXAM: Comprehensive 2D, Doppler, and color-flow Echocardiogram Patient Location: ICU Room #: [facility] Status: routine BSA: 2.10 HR: 98 bpm BP: 171/76 mmHg Other Information Study Quality: Technically Difficult Technically limited study due to body habitus, inability to position patient, patient on ventilator. Indications Diabetes Hypertension/HDD Pulmonary edema 2D Dimensions RVDd: 36.21 mm LVEF(%): 67.98 (>50%) IVSd: 12.54 (7-11mm) LVOT Diam: 19.62 (18-24mm) LVDd: 37.35 mm PWd: 13.22 (7-11mm) Ascending Ao: 31.60 (22-36mm) LVDs: 23.46 (25-40mm) Aortic Root: 32.69 mm IVC: 11.00 mm Stewart's LVEF: 67.98 % Volumes Left Atrial Volume (Systole) Single Plane 4CH: 52.20 mL Single Plane 2CH: 27.15 mL LA ESV Index: 20.00 mL/m2 Aortic Valve AoV Peak Morteza.: 1.79 m/s AO Peak Gr.: 12.87 mmHg LVOT Max P.42 mmHg LVOT Max V: 1.16 m/s MORGAN Vmax: 1.96 cm2 [facility] [address] 2 D/M-MODE ECHOCARDIOGRAM Name: SHARRON DIETRICH Room #: 247-P [facility] IN M.R.#: [id number] Admission: 06/29/17 Attend Phys: Dex Anderson, Discharge: Date of : 42 Date of Service: 07/02/17 1047 Report #: [id number] Mitral Valve E/A Ratio: 0.8 MV Decel. Time: 190.04 ms MV E Max Morteza.: 1.38 m/s MV A Morteza.: 1.74 m/s MV PHT: 55.11 ms IVRT: 100.35 ms Pulmonary Valve PV Peak Morteza.: 1.43 m/s PV Peak Gr.: 8.16 mmHg Pulmonary Vein P Vein S: 0.54 m/s P Vein A: 0.31 m/s P Vein D: 0.67 m/s P Vein A Dur.: 96.9 msec P Vein S/D Ratio: 0.81 Tricuspid Valve TR Peak Morteza.: 2.94 m/s RAP Estimate: 5.00 mmHg TR Peak Gr.: 34.46 mmHg PA Pressure: 40.00 mmHg Left Ventricle The left ventricle is normal size. There is normal LV segmental wall motion. Mild concentric left ventricular hypertrophy. The left ventricular systolic function is normal. The left ventricular ejection fraction is within the normal range. LVEF is 55-60%. Mild diastolic dysfunction is present (impaired relaxation pattern). Right Ventricle The right ventricle is normal size. The right ventricular systolic function is normal. Atria The left atrium size is normal. The right atrium size is normal. Aortic Valve The aortic valve is normal in structure. No aortic regurgitation is present. There is no aortic valvular stenosis. Mitral Valve The mitral valve is normal in structure. There is no mitral valve regurgitation noted. No evidence of mitral valve stenosis. [facility] [address] [place] [address] 2 D/M-MODE ECHOCARDIOGRAM Name: SHARRON DIETRICH Room #: 247-P ADM IN M.R.#: [id number] Admission: 06/29/17 Attend Phys: Dex Anderson, Discharge: Date of : 42 Date of Service: 07/02/17 1047 Report #: [id number] Tricuspid Valve The tricuspid valve is normal in structure. Mild tricuspid regurgitation. PAP is estimated at 40 mmHg. Pulmonic Valve Pulmonic valve is not well visualized. There is no pulmonic valvular regurgitation noted. Great Vessels The aortic root is normal in size. IVC is normal in size and collapses >50% with inspiration. Pericardium There is no pericardial effusion. <Conclusion> The left ventricular systolic function is normal. There is normal LV segmental wall motion. LVEF is 55-60%. Mild diastolic dysfunction The aortic valve is normal in structure. No aortic regurgitation or stenosis The mitral valve is normal in structure. No mitral valve regurgitation noted. Mild tricuspid regurgitation. Pulmonary artery pressure estimated at 40 mmHg. There is no pericardial effusion. <ELECTRONICALLY SIGNED> By: Kyle Hidalgo MD, FACC 07/02/17 1047 1047 1047 Kyle Hidalgo MD, FACC /INF
[~2017-06-29 08:52] MED LIST changes: +FLORANEX GRANU1 EACH PER TUBE; +GLUCAGON HCL1 MG IM; +VANCOMYCIN HCL10 GM PO
[2017-06-29 10:10] LABS: ABSOLUTE NEUTROPHILS 9.9 thou/uL (1.4-8.2); BASOPHILS 0.1 % (0.0-2.0); EOSINOPHILS 0.1 % (0.0-3.0); HEMATOCRIT 32.1 % (37.0-47.0); HEMOGLOBIN 10.4 gm/dL (12.0-15.0); LYMPHOCYTES 18.7 % (24.0-44.0); MCH 28.5 pg (26.0-34.0); MCHC 32.4 g/dL (28.0-37.0); MONOCYTES 9.6 % (1.0-8.0); PLATELET COUNT 155 thou/uL (150-400); POLYS 71.5 % (36.0-66.0); RBC 3.65 mil/uL (4.20-5.00); RDW 15.7 % (10.5-14.5); WBC 13.9 thou/uL (4.0-11.0)
[2017-06-29 10:18] LABS: ANION GAP 10 mmol/L (7-16); BUN 61 mg/dL (7-18); CHLORIDE 96 mmol/L (98-107); CO2 22 mmol/L (21-32); CREATININE 3.4 mg/dL (0.6-1.0); GLUCOSE 323 mg/dL (74-106); POTASSIUM 5.7 mmol/L (3.5-5.1); SODIUM 128 mmol/L (136-145)
[2017-06-29 10:23] LABS: DIRECT BILIRUBIN < 0.1 mg/dL (<0.1-0.3); LIPASE 44 U/L (73-393); SGOT 22 U/L (15-37); SGPT 12 U/L (30-65); TOTAL BILIRUBIN 0.2 mg/dL (<0.1-1.0); TOTAL PROTEIN 6.4 g/dL (6.4-8.2)
[2017-06-29 10:41] LABS: URINE BILIRUBIN NEGATIVE (Negative); URINE BLOOD TRACE (Negative); URINE CLARITY HAZY; URINE COLOR YELLOW; URINE GLUCOSE-RANDOM* NEGATIVE (Negative); URINE KETONES NEGATIVE (Negative); URINE LEUKOCYTES 2+ (Negative); URINE NITRITE POSITIVE (Negative); URINE PROTEIN (DIPSTICK) 1+ (Negative); URINE UROBILINOGEN 0.2 E.U./dl (0.2-1.0)
[2017-06-29 10:52] LABS: BACTERIA >30 Many /HPF (None Seen); CASTS None Seen /LPF (None Seen); CRYSTALS None Seen /LPF (None Seen); SQUAMOUS 0-3 Few /LPF (0-3); URINE RBC 3-10 Few /HPF (0-2); URINE WBC >25 Many /HPF (0-5)
[2017-06-29] MEDS ORDERED: DEPAKOTE ER500 MG PER TUBE (11:21)
[2017-06-29] MEDS ORDERED: COREG25 MG PER TUBE (11:23)
[2017-06-29] MEDS ORDERED: LIPITOR 20 MG T20 M1 PER TUBE (11:23)
[2017-06-29] MEDS ORDERED: ASPIR 8181 M1 PER TUBE (11:23)
[2017-06-29] MEDS ORDERED: PEPCID20 MG PER TUBE (11:24)
[2017-06-29] MEDS ORDERED: GABAPENTIN 100100 MG PER TUBE (11:25)
[2017-06-29] MEDS ORDERED: FLORANEX GRANU1 EACH PER TUBE (11:25)
[2017-06-29] MEDS ORDERED: PERCOCET 7.5-31 EACH PO (11:26)
[2017-06-29] MEDS ORDERED: EFFEXOR XR37.5 MG PER TUBE (11:27)
[2017-06-29] MEDS ORDERED: VITAMIN D400 UNIT PER TUBE (11:27)
[2017-06-29 13:20] LABS: BE(vivo) -6.4 mmol/L (-2 to +3); HCO3 19.9 mmol/L (22.0-26.0); PCO2 42.3 mmHg (35.0-45.0); PO2 353.1 mmHg (80.0-100.0); sO2 99.7 % (92.0-98.0)
[2017-06-29 16:45] LABS: INR 1.2; PROTIME 11.9 Seconds (9.3-11.4)
[2017-06-30] VITALS (41 sets, daily range): BP systolic 72–136; BP diastolic 28–109
[2017-06-30 05:19] LABS: BE(vivo) -8.6 mmol/L (-2 to +3); HCO3 17.1 mmol/L (22.0-26.0); PCO2 36.2 mmHg (35.0-45.0); PO2 109.3 mmHg (80.0-100.0); sO2 97.5 % (92.0-98.0)
[2017-06-30 05:20] LABS: pH 7.293 (7.360-7.450)
[2017-06-30 06:19] LABS: HEMATOCRIT 27.6 % (37.0-47.0); HEMOGLOBIN 8.7 gm/dL (12.0-15.0); MCH 28.4 pg (26.0-34.0); MCHC 31.4 g/dL (28.0-37.0); MCV 90.2 fL (80.0-100.0); RBC 3.06 mil/uL (4.20-5.00); RDW 15.6 % (10.5-14.5); WBC 26.5 thou/uL (4.0-11.0)
[2017-06-30 06:40] LABS: CREATININE 2.8 mg/dL (0.6-1.0)
[2017-07-01] VITALS (47 sets, daily range): BP systolic 79–144; BP diastolic 41–99
[2017-07-01 05:57] LABS: HEMATOCRIT 28.5 % (37.0-47.0); HEMOGLOBIN 9.1 gm/dL (12.0-15.0); MCH 28.6 pg (26.0-34.0); MCHC 32.1 g/dL (28.0-37.0); MCV 89.1 fL (80.0-100.0); RBC 3.2 mil/uL (4.20-5.00); RDW 15.7 % (10.5-14.5)
[2017-07-01 06:17] LABS: ALBUMIN 1.4 g/dL (3.4-5.0); CALCIUM 8.1 mg/dL (8.5-10.1); CREATININE 2.2 mg/dL (0.6-1.0); POTASSIUM 4.5 mmol/L (3.5-5.1); TOTAL BILIRUBIN 0.3 mg/dL (<0.1-1.0); TOTAL PROTEIN 5.6 g/dL (6.4-8.2)
[2017-07-01 17:27] LABS: BE(vivo) -8.3 mmol/L (-2 to +3); HCO3 16.2 mmol/L (22.0-26.0); PCO2 30.1 mmHg (35.0-45.0); PO2 86.4 mmHg (80.0-100.0); pH 7.349 (7.360-7.450); sO2 96.3 % (92.0-98.0)
[2017-07-02] VITALS (34 sets, daily range): BP systolic 85–171; BP diastolic 39–104
[2017-07-02 05:26] LABS: HEMATOCRIT 27.4 % (37.0-47.0); HEMOGLOBIN 8.7 gm/dL (12.0-15.0); MCH 28.3 pg (26.0-34.0); MCHC 31.9 g/dL (28.0-37.0); MCV 88.9 fL (80.0-100.0); PLATELET COUNT 144 thou/uL (150-400); RBC 3.08 mil/uL (4.20-5.00); WBC 19.5 thou/uL (4.0-11.0)
[2017-07-02 09:24] LABS: ABSOLUTE NEUTROPHILS 15.4 thou/uL (1.4-8.2); ANISOCYTOSIS 1+
[2017-07-02 16:17] LABS: CALCIUM 8.8 mg/dL (8.5-10.1); CREATININE 1.5 mg/dL (0.6-1.0); POTASSIUM 3.3 mmol/L (3.5-5.1)
[2017-07-02 23:09] LABS: ADENOVIRUS Negative (Negative); INFLUENZA A Negative (Negative); INFLUENZA B Negative (Negative); METAPNEUMOVIRUS Negative (Negative); PARAINFLUENZA 1 Negative (Negative); PARAINFLUENZA 2 Negative (Negative); PARAINFLUENZA 3 Negative (Negative); RHINOVIRUS Negative (Negative); RSV A Negative (Negative); RSV B Negative (Negative)
[2017-07-03] VITALS (17 sets, daily range): BP systolic 100–169; BP diastolic 62–128
[2017-07-03 05:17] LABS: CALCIUM 8.7 mg/dL (8.5-10.1); CREATININE 1.3 mg/dL (0.6-1.0); POTASSIUM 3.3 mmol/L (3.5-5.1)
[2017-07-04] VITALS (12 sets, daily range): BP systolic 144–166; BP diastolic 66–113
[2017-07-05 00:07] VITALS: BP 153/61
[2017-07-05 04:40] VITALS: BP 156/54
[2017-07-05 05:54] LABS: HEMATOCRIT 26.2 % (37.0-47.0); HEMOGLOBIN 8.7 gm/dL (12.0-15.0); MCH 29.1 pg (26.0-34.0); MCV 87.9 fL (80.0-100.0); PLATELET COUNT 150 thou/uL (150-400); RBC 2.98 mil/uL (4.20-5.00); RDW 15.2 % (10.5-14.5); WBC 13.8 thou/uL (4.0-11.0)
[2017-07-05 06:05] LABS: ALBUMIN 1.5 g/dL (3.4-5.0); CALCIUM 9.2 mg/dL (8.5-10.1); CREATININE 1.1 mg/dL (0.6-1.0); POTASSIUM 3.6 mmol/L (3.5-5.1); TOTAL BILIRUBIN 0.3 mg/dL (<0.1-1.0); TOTAL PROTEIN 5.9 g/dL (6.4-8.2)
[2017-07-05 07:33] LABS: ABSOLUTE NEUTROPHILS 8.7 thou/uL (1.4-8.2); ANISOCYTOSIS 1+; HYPOCHROMASIA 1+; METAMYELOCYTES 4 %; NUCLEATED RBCS 2 /100WBC; POLYCHROMASIA 1+; TOXIC GRANULATION 1+
[2017-07-05 07:56] VITALS: BP 131/60
[2017-07-05 09:54] VITALS: BP 131/60
[2017-07-05 15:52] VITALS: BP 116/56
[2017-07-05 20:44] VITALS: BP 139/61
[2017-07-06 04:42] VITALS: BP 163/73
[2017-07-06 08:59] VITALS: BP 151/73
[2017-07-06 12:15] VITALS: BP 138/58
[2017-07-06 16:31] VITALS: BP 135/42
[2017-07-06 20:00] VITALS: BP 132/58
[2017-07-07 04:00] VITALS: BP 125/39
[2017-07-07 08:04] VITALS: BP 143/38
[2017-07-07] MEDS ORDERED: VANCOMYCIN HCL10 GM PER TUBE (09:43)
[2017-07-07] MEDS ORDERED: CIPRO500 MG PO (09:43)
[2017-07-07 11:58] VITALS: BP 161/58
== END 2017-07-07 16:15 | DRG 871 ==
LOC: ER 08:52 → EROBS 10:45 → ICU 10:45 → 3W 07-04 15:23
PROVIDERS: Emergency Medicine; Hospitalist; Internal Medicine Geriatric Medicine; Internal Medicine Infectious Disease; Internal Medicine Pulmonary Disease; Nurse Practitioner
DX: A41.9 Sepsis, unspecified organism (principal); J69.0 Pneumonitis due to inhalation of food and vomit; R65.21 Severe sepsis with septic shock; J96.01 Acute respiratory failure with hypoxia; N17.9 Acute kidney failure, unspecified; E87.1 Hypo-osmolality and hyponatremia; N39.0 Urinary tract infection, site not specified; J98.11 Atelectasis; A04.72 Enterocolitis due to Clostridium difficile, not specified as recurrent; E11.22 Type 2 diabetes mellitus with diabetic chronic kidney disease; I12.9 Hypertensive chronic kidney disease with stage 1 through stage 4 chronic kidney disease, or unspecified chronic kidney disease; N18.3 Chronic kidney disease, stage 3 (moderate); E78.5 Hyperlipidemia, unspecified; E11.65 Type 2 diabetes mellitus with hyperglycemia; E87.5 Hyperkalemia; Z96.652 Presence of left artificial knee joint; F03.90 Unspecified dementia, unspecified severity, without behavioral disturbance, psychotic disturbance, mood disturbance, and anxiety; E11.42 Type 2 diabetes mellitus with diabetic polyneuropathy; L89.152 Pressure ulcer of sacral region, stage 2; L89.612 Pressure ulcer of right heel, stage 2; D72.823 Leukemoid reaction; Z88.6 Allergy status to analgesic agent; Z88.8 Allergy status to other drugs, medicaments and biological substances; Z79.899 Other long term (current) drug therapy; Z79.4 Long term (current) use of insulin; Z88.2 Allergy status to sulfonamides; Z98.49 Cataract extraction status, unspecified eye; B96.1 Klebsiella pneumoniae [K. pneumoniae] as the cause of diseases classified elsewhere
CPT/HCPCS: 10203; 10779; 27000

== ENCOUNTER → 2019-03-02 | Outpatient (CLI) | payer OTHER ==
[~2019-03-02] MED LIST changes: +ASPIR 8181 M1 PER TUBE; +CIPRO500 MG PO; +COREG25 MG PER TUBE; +DEPAKOTE ER500 MG PER TUBE; +EFFEXOR XR37.5 MG PER TUBE; +GABAPENTIN 100100 MG PER TUBE; +LIPITOR 20 MG T20 M1 PER TUBE; +PEPCID20 MG PER TUBE; +VANCOMYCIN HCL10 GM PER TUBE; +VITAMIN D400 UNIT PER TUBE
== END ==
LOC: SPEECH 09:46 → RAD 09:46
DX: E78.5 Hyperlipidemia, unspecified (principal); G93.40 Encephalopathy, unspecified; I10 Essential (primary) hypertension; E11.40 Type 2 diabetes mellitus with diabetic neuropathy, unspecified; R26.2 Difficulty in walking, not elsewhere classified; R29.3 Abnormal posture; R13.12 Dysphagia, oropharyngeal phase; R41.841 Cognitive communication deficit; M62.81 Muscle weakness (generalized); G40.89 Other seizures; G93.41 Metabolic encephalopathy; M62.50 Muscle wasting and atrophy, not elsewhere classified, unspecified site; F33.9 Major depressive disorder, recurrent, unspecified; F48.2 Pseudobulbar affect

== ENCOUNTER 2019-12-20 17:23 | Inpatient (IN) | payer OTHER ==
[2019-12-20] VITALS (8 sets, daily range): BP systolic 154–169; BP diastolic 60–80
[~2019-12-20] VITALS: Ht 172.7 cm; Wt 101.2 kg
--- NOTE | ~2019-12-20 | EMS ---
[address] [address] EMS Patient Care Report Name: SHARRON DIETRICH Room #: 236-P ADM IN M.R.#: [id number] Admission: 12/20/19 Attend Phys: David Reid MD Discharge: Date of : 42 Report #: [id number] THIS REPORT FOR: //name// Report Transmitted: 12/21/2019 09:11 EMS Care Summary [place], [place]/[facility] Incident [id number] @ 12/20/2019 16:47 Incident Location [address] [place] [address] Patient SHARRON DIETRICH Female, 79 Years 1940 Patient Address [address] [place] [address] Patient History None Reported, Patient Allergies No known allergies, Patient Medications None Reported, Chief Complaint PTS NURSE REPORTS HEMOGLOBIN LEVE OF 6 Disposition Transported No Lights/[place] Reason Breathing Problem Transported To [facility] Narrative pt's nurse reports that pt is soa and has an hemoglobin that pt has 6.0. pt denies any recent hemorrhaging. pt is has no other complaints. [address] [address] EMS Patient Care Report Name: SHARRON DIETRICH Room #: 236-P [facility] IN M.R.#: [id number] Admission: 12/20/19 Attend Phys: David Reid MD Discharge: Date of : 42 Report #: [id number] pt was found laying in a bed near the door or the nursing facility. pt spoke in full and complete sentences. pt is unable to stand. pt has no other obvious abnormalities . Initial Vitals @17:08P: 78,R: 18,BP: 134/88,Pain: 0/10,GCS: 15,SpO2: 94,Revised Trauma: 12, @17:02P: 84,R: 18,BP: 136/72,Pain: 0/10,GCS: 15,SpO2: 80,Revised Trauma: 12, Assessments @17:00MENTAL:Person Oriented,Time Oriented,Event Oriented,Place Oriented,SKIN:HEENT:Eyes: Left Pupil: 4-mm,Eyes: Right Pupil: 4-mm,Head/Face: No Abnormalities,Neck/Airway: No Abnormalities,LUNG SOUNDS:General: No Abnormalities,ABDOMEN:General: No Abnormalities,PELVIS//GI:EXTREMITIES:Capillary Refill: Right Upper: < 2 Sec,Left Arm: No Abnormalities,Right Arm: No Abnormalities,Left Leg: No Abnormalities,Right Leg: No Abnormalities,PULSE:Radial: 2+ Normal,NEURO:No Abnormalities, Impression Hemorrhage Procedures @17:00ALS AssessmentSucceeded@17:05Saline Lock cc (18 ga) Site: Antecubital-LeftResponse: UnchangedFailed@17:023-Lead ECGSucceeded@17:01Oxygen FlowRate: 4 Device: Nasal Cannula (NC) Response: ImprovedSucceeded Timeline 16:45,Call Received 16:45,Dispatch Notified 16:47,Dispatched 16:48,En Route 16:58,On Scene 16:59,At Patient 17:00,ALS Assessment,Succeeded, 17:01,Oxygen FlowRate: 4 Device: Nasal Cannula (NC) Response: ImprovedSucceeded, 17:02,3-Lead ECG,Succeeded, 17:02,BP: 136/72 M,PULSE: 84,RR: 18 R,SPO2: 80 Ox,ETCO2: ,BG: ,PAIN: 0,GCS: 15, 17:05,Saline Lock cc 18 ga Site: Antecubital-Left,Response: UnchangedFailed, 17:05,Depart Scene 17:08,BP: 134/88 M,PULSE: 78,RR: 18 R,SPO2: 94 Ox,ETCO2: ,BG: ,PAIN: 0,GCS: 15, 17:18,At Destination 17:46,Call Closed Disclaimer v1.1 Copyright 2020 [employer] This EMS Care Summary contains data elements from [place] [address] EMS Patient Care Report Name: SHARRON DIETRICH Room #: 236-P [facility] IN M.R.#: [id number] Admission: 12/20/19 Attend Phys: David Reid MD Discharge: Date of : 42 Report #: [id number] (which may be displayed differently). It is designed to provide pertinent information for the following purposes: continuity of care, clinical quality, and state data reporting. The complete legal record is available to ED staff and administrators of the receiving hospital in [facility]'s Patient Tracker. All data is provided "as is."
[~2019-12-20 17:23] MED LIST changes: +DEPAKOTE 250MG250 MG PO; -DEPAKOTE ER500 MG PER TUBE; -GABAPENTIN 100100 MG PER TUBE; -PEPCID20 MG PER TUBE; +PEPCID20 MG PO
[2019-12-20 18:15] LABS: ABSOLUTE NEUTROPHILS 5.3 thou/uL (1.4-8.2); MCH 27.2 pg (26.0-34.0); WBC 6.9 thou/uL (4.0-11.0)
[2019-12-20 18:17] LABS: BASOPHILS 0.3 % (0.0-2.0); LYMPHOCYTES 17.3 % (24.0-44.0); MCHC 31.5 g/dL (28.0-37.0); MCV 86.1 fL (80.0-100.0); MONOCYTES 4.7 % (1.0-8.0); POLYS 77.7 % (36.0-66.0); RBC 2.21 mil/uL (4.20-5.00); RDW 17.9 % (10.5-14.5)
[2019-12-20 18:23] LABS: HEMATOCRIT 19.1 % (37.0-47.0); PLATELET COUNT 74 thou/uL (150-400)
[2019-12-20 18:31] LABS: CREATININE 5.7 mg/dL (0.6-1.0); POTASSIUM 5.4 mmol/L (3.5-5.1)
[2019-12-20 18:38] LABS: BE(vivo) -12.2 mmol/L (-2 to +3); HCO3 12.8 mmol/L (22.0-26.0); PCO2 25.4 mmHg (35.0-45.0); PO2 123.4 mmHg (80.0-100.0); sO2 98.3 % (92.0-98.0)
[2019-12-20 18:39] LABS: pH 7.319 (7.360-7.450)
[2019-12-20 18:40] LABS: ALBUMIN 2.4 g/dL (3.4-5.0); DIRECT BILIRUBIN < 0.1 mg/dL (<0.1-0.2); SGOT 902 U/L (15-37); SGPT 671 U/L (30-65); TOTAL BILIRUBIN 0.3 mg/dL (0.2-1.0); TOTAL PROTEIN 6.3 g/dL (6.4-8.2)
[2019-12-20] MEDS ORDERED: CALMOSEPTINE O3.5 GM TOP (18:53)
[2019-12-20] MEDS ORDERED: ARTHRITIS PAIN650 M3 PO (18:54)
[2019-12-20] MEDS ORDERED: NORVASC10 MG PO (18:54)
[2019-12-20] MEDS ORDERED: VITAMIN D325 MC3 PO (18:56)
[2019-12-20] MEDS ORDERED: LEVEMIR100 UNIT/1 SUBQ (18:58)
[2019-12-20] MEDS ORDERED: LACTULOSE10 GM/152 PO (18:59)
[2019-12-20] MEDS ORDERED: LEVEMIR FL100 UNIT/2 SUBQ (18:59)
[2019-12-20] MEDS ORDERED: NUEDEXTA 20-101 EACH PO (19:00)
[2019-12-20] MEDS ORDERED: HUMALOG MI100 UNIT/1 SUBQ (19:00)
[2019-12-20] MEDS ORDERED: TRAMADOL 50 MG50 MG PO (19:01)
[2019-12-20 19:24] LABS: URINE BILIRUBIN NEGATIVE (Negative); URINE BLOOD 3+ (Negative); URINE CLARITY CLOUDY; URINE COLOR YELLOW; URINE GLUCOSE-RANDOM* NEGATIVE (Negative); URINE KETONES NEGATIVE (Negative); URINE LEUKOCYTES-REFLEX 3+ (Negative); URINE NITRITE-REFLEX NEGATIVE (Negative); URINE PROTEIN (DIPSTICK) 2+ (Negative); URINE SPECIFIC GRAVITY 1.025 (1.005-1.035); URINE UROBILINOGEN 0.2 E.U./dl (0.2-1.0)
[2019-12-20 19:43] LABS: BACTERIA-REFLEX >30 Many /HPF (None Seen); CASTS None Seen /LPF (None Seen); CRYSTALS None Seen /LPF (None Seen); URINE WBC-REFLEX >25 Many /HPF (0-5)
[2019-12-20 19:44] LABS: SQUAMOUS 0-3 Few /LPF (0-3); URINE RBC 3-10 Few /HPF (0-2)
--- NOTE | 2019-12-20 20:28 | NUR ---
ATTEMPTED TO CALL REPORT, NURSE IS IN ISOLATION ROOM AND WILL CALL WHEN AVAILABLE.
--- NOTE | 2019-12-20 23:09 | NUR ---
Spoke with Dr. Mckeon re: pt's renal failure with elevated BP, BNP, resp distress and need for blood products to be given. No new orders for now. Will see in a.m. Pt seems to be diuresing some from lasix given in ED.
[2019-12-21] VITALS (64 sets, daily range): BP systolic 77–176; BP diastolic 37–117
--- NOTE | 2019-12-21 00:42 | NUR ---
Pt with increasing O2 demands requiring 100% NRB to maintain adequate SPO2. RR 40, labored and audibly coarse & congested. Dr. Hunter notified and orders received. Vancomycin has been turned off at this time as blood is transfusing.
[2019-12-21] MEDS ORDERED: ATORVASTATIN CA20 MG PO (05:17)
[2019-12-21] MEDS ORDERED: LEVEMIR100 UNIT/1 SUBQ (05:19)
[2019-12-21 06:43] LABS: HEMATOCRIT 25.6 % (37.0-47.0); MCH 27.9 pg (26.0-34.0); MCHC 31.9 g/dL (28.0-37.0); MCV 87.3 fL (80.0-100.0); RBC 2.93 mil/uL (4.20-5.00); RDW 17.5 % (10.5-14.5); WBC 8.3 thou/uL (4.0-11.0)
[2019-12-21 07:02] LABS: HEMOGLOBIN 8.2 gm/dL (12.0-15.0)
[2019-12-21 07:16] LABS: CALCIUM 7.1 mg/dL (8.5-10.1); CREATININE 5.8 mg/dL (0.6-1.0); POTASSIUM 5.5 mmol/L (3.5-5.1); TROPONIN-I 0.31 ng/mL (<0.06)
--- NOTE | 2019-12-21 07:21 | NUR ---
0100: Pt respiratory distress/work of breathing continued to increase. RR into 40s, O2 sat low 90s. Pt. placed on BIPAP 12/6 R 10 FIO2 50% and tolerated well. Resps became more non labored and pt appeared comfortable. Diruesed well after lasix dose. This a.m. pt is beginning to once again have more distress and work of breathing. Lung sounds on the right especially coarse/crackles. Pt tolerated blood transfusion well and a.m. labs noted. No overt sign of bleeding, no BM. Not progressing towards goals at this time.
--- NOTE | 2019-12-21 07:30 | EKG ---
[facility] [place] [address] ELECTROCARDIOGRAM REPORT Name: SHARRON DIETRICH Room #: 236-P ADM IN M.R.#: [id number] Admission: 12/20/19 Attend Phys: David Reid MD Discharge: Date of : 42 Report #: [id number] THIS REPORT FOR: cc: Rene Jerome James D. DO Lundgren, Craig H. 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
--- NOTE | 2019-12-21 10:59 | NUR ---
WOUND CONSULT; COVID19 ISOLATION. THE BILATERAL LE'S WERE ASSESSED. THE RIGHT CLARKE IS A RESOLVING WOUND CONSISTANT WITH PRESSURE OF AN UNKOWN ORIGION. NO S/S OF INFECTION WITH A SMALL AMOUT OF BLEEDING. THE LEFT HEEL WOUND IS SIMILAR TO THE RIGHT, PINK WOUND BED, VERY CLOSE TO BEING FRAGIALLY HEALED. NO S/S OF INFECTION. RECOMMENDATIONS; BORDER FOAM TO BOTH WOUNDS, SECURE WITH KERLIX, CHANGE M/W/F PRN DISCUSSED WITH PRESTON
[2019-12-21 11:02] LABS: ALBUMIN 2.3 g/dL (3.4-5.0); CALCIUM 7.6 mg/dL (8.5-10.1); CREATININE 5.9 mg/dL (0.6-1.0); PHOSPHORUS 6.4 mg/dL (2.5-4.9); POTASSIUM 5.6 mmol/L (3.5-5.1)
[2019-12-21 11:57] LABS: BE(vivo) -14.8 mmol/L (-2 to +3); HCO3 10.9 mmol/L (22.0-26.0); sO2 85.3 % (92.0-98.0)
[2019-12-21 11:59] LABS: PCO2 24.9 mmHg (35.0-45.0); PO2 55.7 mmHg (80.0-100.0); pH 7.258 (7.360-7.450)
--- NOTE | 2019-12-21 12:11 | NUR ---
RN ASSUMED CARE AROUND 1100. RN SPEAKING TO DR. LOZA ABOUT POC AND INCREASED WORK TO BREATH. DR. CALABRESE CONSULTED ABOUT POS. BLOOD CULTURES. DR. CALABRESE ROUNDING. KIP CRITICAL, DAGO NOTIFIED. PATIENT RESULT COVID +, ALF CALLED. RN SPOKE WITH YEFRI AT 1210 AT [facility] ABOUT POSTIVE TEST RESULT.
[2019-12-21 13:01] LABS: URINE CREATININE-RANDOM* 29.6 mg/dL; URINE PROTEIN-RANDOM* 185.7 mg/dL (<11.9)
[2019-12-21 14:07] LABS: FIBRINOGEN 342.8 mg/dL (210-360); INR 1.3; PROTIME 13.1 Seconds (9.3-11.4)
[2019-12-21 14:14] LABS: % SATURATION 8 % (20-39); IRON 18 ug/dL (50-170); TIBC 240 ug/dL (250-450)
[2019-12-21 14:51] LABS: BE(vivo) -14.6 mmol/L (-2 to +3); HCO3 12.1 mmol/L (22.0-26.0); PCO2 31.6 mmHg (35.0-45.0); PO2 250.3 mmHg (80.0-100.0); sO2 99.4 % (92.0-98.0)
[2019-12-21 14:52] LABS: pH 7.202 (7.360-7.450)
--- NOTE | 2019-12-21 14:57 | NUR ---
VASCULAR ACCESS CONSULTED FOR CVAD. PT'S LABS,MEDS,HISTORY,ORDERS AND CONSENT PER DR LOZA FOR MEDICAL NECESSITY. LIJ WAS WIDELY PATENT WITH USG. 6FR 25CM POWER JACC INSERTED TO 5CM EXTERNAL. SITE BLEEDING PRESSURE HELD X5 MINUTES,NOW OOZING. STAT CXR ORDERED. BEDSIDE TIMEOUT WITH ADRIANNE JOHNSTON.
--- NOTE | 2019-12-21 15:14 | NUR ---
ISIAH RELEASED FOR IMMEDIATE USE PER PROTOCOL TO GUZMAN JOHNSTON. CXR CONFIRMED SVC
--- NOTE | 2019-12-21 16:00 | NUR ---
Chart reviewed and case discussed with the care team. The pt was admitted via the ER from [facility]. She is now in the ICU on a Vent with Enhanced Precautions/Covid +. A copy of the pt's legal guardianship paperwork was rec'd from the [place] liason and placed on the medical record. The care team was updated. Pt's dtr Monica is her legal guardian and dtrs Sayra and Lloyd are noted to be alternate contacts. Nursing indicates Dr. Adrian or the hospitalist will be contacting Monica to update the family on her condition. [facility] updated and dc medical planner to fax a clincial update to their liason. They are holding her room as she has been a ltc resident there for several years. Will follow along and offer to support to pt's family as needed.
[2019-12-22] VITALS (42 sets, daily range): BP systolic 101–148; BP diastolic 32–106
--- NOTE | 2019-12-22 04:47 | NUR ---
Patient making some progress towards outcome goals. Requiring less FIO2 down to 50% and sats at 100%, munimal secretions. Off Levophed as of 0400 MAP >65. Rhythm stable. Propofol down to 14.9 mcg/kg/min, light sedation. Bed on rotation.
--- NOTE | 2019-12-22 04:51 | NUR ---
Completed transfusion of convalescent plasma without untoward reactions.
[2019-12-22 05:12] LABS: FIBRINOGEN 443.7 mg/dL (210-360); INR 1.2; PROTIME 12.8 Seconds (9.3-11.4)
[2019-12-22 05:27] LABS: ALBUMIN 1.6 g/dL (3.4-5.0); CALCIUM 7.6 mg/dL (8.5-10.1); CREATININE 6.3 mg/dL (0.6-1.0); PHOSPHORUS 6.8 mg/dL (2.5-4.9); POTASSIUM 4.8 mmol/L (3.5-5.1); TOTAL BILIRUBIN 0.4 mg/dL (0.2-1.0); TOTAL PROTEIN 5.5 g/dL (6.4-8.2)
[2019-12-22 05:47] LABS: HEMATOCRIT 21.5 % (37.0-47.0); HEMOGLOBIN 6.6 gm/dL (12.0-15.0); WBC 15.7 thou/uL (4.0-11.0)
[2019-12-22 05:50] LABS: MCH 27.2 pg (26.0-34.0); MCHC 30.7 g/dL (28.0-37.0); MCV 88.7 fL (80.0-100.0); PLATELET COUNT 70 thou/uL (150-400); RBC 2.42 mil/uL (4.20-5.00); RDW 17.6 % (10.5-14.5)
--- NOTE | 2019-12-22 06:04 | NUR ---
Multiple abnormal labs, Dr Uzma gurerero, aware of labs. Will discuss prognosis with daughter Monica Knapp DPOA [phone].
[2019-12-22 07:48] LABS: BE(vivo) -13.2 mmol/L (-2 to +3); HCO3 13.3 mmol/L (22.0-26.0); PCO2 32.9 mmHg (35.0-45.0); PO2 144.7 mmHg (80.0-100.0); sO2 98.5 % (92.0-98.0)
[2019-12-22 07:49] LABS: pH 7.225 (7.360-7.450)
--- NOTE | 2019-12-22 08:27 | NUR ---
ORDERS FOR EVAL AND TREAT. Pt NOW COVID POSITIVE AND INTUBATED THIS AM AND CONDITION WORSENING. WILL PLACE Pt ON HOLD AT THIS TIME AND AWAIT NEW ORDERS WHEN APPROPRIATE
--- NOTE | 2019-12-22 08:59 | NUR ---
RECEIVED OT EVAL AND TREAT ORDER. PATIENT IS COVID POSITIVE AND NOW HAS BEEN INTUBATED. WILL AWAIT NEW ORDERS IF MEDICALLY APPROPRIATE.
[2019-12-22 09:46] LABS: ABSOLUTE NEUTROPHILS 15.4 thou/uL (1.4-8.2)
[2019-12-22 09:48] LABS: ANISOCYTOSIS 2+; MACROCYTES 1+; MICROCYTES 1+
--- NOTE | 2019-12-22 16:20 | NUR ---
PT IS FROM [facility] FAXED CLINICAL UPDATE TO FACILITY SPOKE WITH MIKE IN ADM SHE RECEIVED UPDATE AND WILL FOLLOW.
--- NOTE | 2019-12-22 20:26 | NUR ---
PATIENT NOT PROGRESSING TOWARDS OUTCOME GOALS SHE IS UNABLE TO WEAN FROM THE VENT. VACATION SEDATION 0730 THIS AM FOR 15 MINS HEART RATE STABLE IN THE 40'S AND 50'S. OPENED EYES AND MOVED ABOUT. DID NOT FOLLOW COMMANDS SHE HAS A HISTORY OF DEMENTIA. INCONTIENT OF STOOL TODAY. GROVES PATENT.
[2019-12-23] VITALS (49 sets, daily range): BP systolic 117–158; BP diastolic 50–100
[2019-12-23 05:22] LABS: ALBUMIN 1.6 g/dL (3.4-5.0); CALCIUM 7.3 mg/dL (8.5-10.1); CREATININE 6.2 mg/dL (0.6-1.0); TOTAL BILIRUBIN 0.5 mg/dL (0.2-1.0); TOTAL PROTEIN 5.7 g/dL (6.4-8.2)
[2019-12-23 05:51] LABS: HEMATOCRIT 22.2 % (37.0-47.0); HEMOGLOBIN 7.2 gm/dL (12.0-15.0); MCH 27.8 pg (26.0-34.0); MCHC 32.6 g/dL (28.0-37.0); MCV 85.3 fL (80.0-100.0); RBC 2.6 mil/uL (4.20-5.00); RDW 17.2 % (10.5-14.5); WBC 10.3 thou/uL (4.0-11.0)
--- NOTE | 2019-12-23 05:56 | NUR ---
PT FACIAL GRIMACES TO PAIN, MOVES EXTREMITIES AT RANDOM WELL OPENS EYES AT RANDOM. DOESNT FOLLOW COMMANDS. PT INTUBATED N SEDATED. PT WAS SLIGHTLY HYPOTHERMIC AT 94.2 UPON ASSUMPTION OF CARE SO BLAYNE WU WAS PUT ON PT. TEMP UP TO 94.6 AT 4AM. U/O AVEARGE 35ML/HR THIS SHIFT. LEFT CENTRAL LINE DRESSING CHANGED. BATH THIS AM. PT IS STABLE. WILL CONTINUE TO MONITOR.
--- NOTE | 2019-12-23 12:11 | NUR ---
1200- Nurse answered a call of a family member that is not a spokesperson. Nurse kindly explained that no information can be given out to a non-spokes person. She expressed she understood and then we disconnected on the phone.
--- NOTE | 2019-12-23 13:38 | NUR ---
7014- Nurse attempted to call patients DPOA for update on plan of care and to make sure her questions were answered. No one answered the phone call. Nurse will call Cedrick too.
--- NOTE | 2019-12-23 15:17 | HC ---
[facility] [place] [address] CONSULTATION Name: SHARRON DIETRICH Room #: 236-P ADM IN M.R.#: [id number] Admission: 12/20/19 Attend Phys: David Reid MD Discharge: Date of : 44 Report #: [id number] THIS REPORT FOR: cc: Rene Jerome James D. DO Al-Absi, Ahmed I. MD ~ CC: David Hunter REASON FOR CONSULTATION: Elevated creatinine. REASON FOR PRESENTATION: Mental status changes, shortness of breath. HISTORY OF PRESENT ILLNESS: This is obtained from the medical chart. This is a 79-year-old who is currently maintained on the CPAP and has a very altered mental status and is not able to provide me with her history. She presented yesterday with significant shortness of breath. She resides in a nursing facility. They sent her because of her low hemoglobin and she was found to be severely hypoxemic and was admitted to the ICU to rule out COVID-19. On presentation to the Emergency Room, the patient was found to have a creatinine value of 5.7. From the renal perspective, the patient is known to have chronic kidney disease. She sees Dr. Shine in our clinic. She last saw him in our clinic back in 07/2019 and at that time her creatinine was 1.6. He noted out in his notes the significant change in her mental status. Unfortunately, further details are not available; however, I thoroughly reviewed her medical chart in our clinic. PAST MEDICAL HISTORY: 1. Diabetes mellitus. 2. Nephrotic syndrome, status post biopsy. 3. Hypertension. 4. Chronic kidney disease, baseline creatinine is around 1.6. 5. Bilateral tubal ligation. 6. Bacteremia meningitis back in 2017 with what seems to be seizure disorder. 7. History of dementia. 8. PEG tube placement back in 2017. REPORTED MEDICATIONS: 1. Depakote. 2. Gabapentin. 3. Amlodipine. 4. Insulin. 5. Lactulose. 6. Tramadol. ALLERGIES: HYDROCODONE, SULFA, AND NONSTEROIDAL ANTI-INFLAMMATORY MEDICATION. [address] [address] CONSULTATION Name: SHARRON DIETRICH Room #: 236-P [facility] IN ..#: [id number] Admission: 12/20/19 Attend Phys: David Reid MD Discharge: Date of : 44 Report #: [id number] SOCIAL HISTORY: She resides in a fpc facility. No reported drug or alcohol abuse. REVIEW OF SYSTEMS: Unable to obtain given the patient's current mental status. FAMILY HISTORY: Unable to obtain given the patient's current mental status. PHYSICAL EXAMINATION: VITAL SIGNS: Temperature is 36.8. Blood pressure is elevated at 161/117. HEAD AND NECK: No jugular venous distention. CHEST: Bilateral crackles and rhonchi. CARDIOVASCULAR: No rub detected. ABDOMEN: Soft, nontender. LOWER EXTREMITIES: There is no edema. LABORATORY VALUES: Reviewed. Hemoglobin was 6 yesterday and it is up to 8.2, platelet is 82. Blood gas with a pH of 7.3. Sodium 134, potassium 5.5, BUN is 86, creatinine is 5.8. COVID-19 is still pending. Chest x-ray, bilateral pulmonary infiltrates. ASSESSMENT AND IMPRESSION: 1. Acute kidney injury. 2. Chronic kidney disease. 3. Respiratory failure. 4. Pulmonary edema. 5. Person under investigation for COVID-19. 6. Diabetes mellitus. 7. Hypertension. 8. Altered mental status. PLAN: 1. It is unclear to me as to why the patient had such a decompensation of her renal function. Appropriate laboratory investigations will be sent. 2. Initiate IV diuresis. 3. ID consultation. 4. Watch blood pressure. 5. Avoid hypertension. 6. Avoid nephrotoxins. 7. No IV fluid for now. 8. We will continue to follow during her hospital stay. <ELECTRONICALLY SIGNED> By: Yasmani Mckeon MD 12/23/19 1517 [id number] Yasmani Mckeon MD /nt
--- NOTE | 2019-12-23 18:26 | NUR ---
Patient is progressing towards goal. PT remains intubated and mildly sedated. Pt is arrousable and responds to commands. No signs of bleeding. At this time we are continueing to monitor and providing care.
[2019-12-24] VITALS (22 sets, daily range): BP systolic 122–161; BP diastolic 58–78
[2019-12-24 06:02] LABS: ALBUMIN 1.6 g/dL (3.4-5.0); CALCIUM 7.3 mg/dL (8.5-10.1); CREATININE 6.5 mg/dL (0.6-1.0); PHOSPHORUS 6.2 mg/dL (2.5-4.9); POTASSIUM 3.9 mmol/L (3.5-5.1)
--- NOTE | 2019-12-24 06:26 | NUR ---
PATIENT ON LIGHT SEDATION, DURING SEDATION VACATION ABLE TO NOD HEAD TO YES/NO QUESTIONS. SINUS BRADYCARDIA ON PR INTERN. ON VENILATOR FI02 40%, O2 SAT REMAINED ABOVE 95%. GROVES PATENT WITH GREATER THAN 30ML/HR. NO SIGNIFICANT EVENTS THROUGHOUT THE NIGHT, WILL CONINUE TO MONITOR.
[2019-12-24 16:06] LABS: HEMOGLOBIN 7.3 g/dL (11.1-15.9)
--- NOTE | 2019-12-24 18:30 | NUR ---
NEPRO STARTED AT 35ML/HR WITH 200ML WATER FLUSHES Q6. TOLERATING WELL. SPOKE WITH DAUGHTER HANANE AROUND 1100AM AND UPDATED HER ON PT CONDITION AND PLAN OF CARE. CONSULT CALLED TO DR. NIXON AND HE WILL REACH OUT TO FAMILY AND SEE PATIENT TOMORROW. VSS.
[2019-12-25] VITALS (24 sets, daily range): BP systolic 104–176; BP diastolic 58–86
[2019-12-25 05:42] LABS: HEMATOCRIT 23.4 % (37.0-47.0); HEMOGLOBIN 7.5 gm/dL (12.0-15.0); MCH 27.6 pg (26.0-34.0); MCHC 32.2 g/dL (28.0-37.0); MCV 85.7 fL (80.0-100.0); RBC 2.73 mil/uL (4.20-5.00); WBC 7.3 thou/uL (4.0-11.0)
--- NOTE | 2019-12-25 06:00 | NUR ---
REMAINS INTUBATED AND SEDATED WITH PROPOFOL GTT HARPREET TUBE FEEDING HAD A LARGE LOOSE BROWN STOOL BATHED. PT REMAINS A DNR 600 CC UO THIS SHIFT. VSS WILL CONT TO MONITOR.
[2019-12-25 06:12] LABS: ALBUMIN 1.6 g/dL (3.4-5.0); CALCIUM 7.6 mg/dL (8.5-10.1); CREATININE 6.3 mg/dL (0.6-1.0); PHOSPHORUS 5.2 mg/dL (2.5-4.9); POTASSIUM 3.4 mmol/L (3.5-5.1)
[2019-12-25 10:48] LABS: BE(vivo) -7.9 mmol/L (-2 to +3); HCO3 15.6 mmol/L (22.0-26.0); PO2 129.9 mmHg (80.0-100.0); pH 7.417 (7.360-7.450); sO2 98.7 % (92.0-98.0)
[2019-12-25 10:49] LABS: PCO2 24.7 mmHg (35.0-45.0)
--- NOTE | 2019-12-25 16:21 | NUR ---
NO CHANGES TO VENT SETTINGS, ABG CALLED TO DR. LOZA, NO CHANGES. INCREASED ETT SECRETIONS. TOLERATING TUBE FEEDS, ADEQUATE URINE OUTPUT. 2 LARGE SOFT BOWEL MOVEMENTS THIS SHIFT
[2019-12-26] VITALS (24 sets, daily range): BP systolic 95–173; BP diastolic 54–88
[2019-12-26 05:40] LABS: HEMATOCRIT 23.7 % (37.0-47.0); HEMOGLOBIN 7.6 gm/dL (12.0-15.0); MCH 27.5 pg (26.0-34.0); MCHC 32.1 g/dL (28.0-37.0); MCV 85.8 fL (80.0-100.0); RBC 2.76 mil/uL (4.20-5.00); RDW 17.1 % (10.5-14.5); WBC 4.8 thou/uL (4.0-11.0)
[2019-12-26 06:26] LABS: ALBUMIN 1.5 g/dL (3.4-5.0); CALCIUM 7.9 mg/dL (8.5-10.1); CREATININE 5.8 mg/dL (0.6-1.0); PHOSPHORUS 5.8 mg/dL (2.5-4.9); POTASSIUM 3.6 mmol/L (3.5-5.1)
--- NOTE | 2019-12-26 10:15 | NUR ---
WOUND CARE F/U; DISCUSSED THE WOUNDS/ PATIENT CONDITION WITH THE RN TODAY. THE WOUNDS WERE REPORTED MINOR AND HEALING. DUE TO COVID19 RESTRICTIONS I WILL NOT ASSESS THE PATIENT TODAY. THE RN WILL NOTIFY ME IF ANY CHANGES IN THE WOUNDS. NO CHANGES AT THIS TIME DISCUSSED WITH RN
--- NOTE | 2019-12-26 15:55 | NUR ---
SW reviewed chart and spoke with attending physician. Pt remains intubated and sedated in ICU. Pt is in Enhanced Isolation due to COVID-19. Pt is a DNR. Palliative care physician consulted to discuss plan of care with pt's family. SW provided update to [facility] post-acute liaison. SW is following to assist as needed with discharge planning.
--- NOTE | 2019-12-26 18:41 | NUR ---
FIO2 CONTINUES AT .40. TOLERATING TUBE FEEDS. SMALL AMOUNT OF LIQUID BROWN STOOL NOTED IN RECTAL TUBE. INCREASED BLOOD SUGARS IN THE 300'S. DR. CERON NOTIFED AND WILL PUT ORDERS IN FOR LANTUS TO GO WITH THE SLIDING SCALE.
[2019-12-27] VITALS (25 sets, daily range): BP systolic 80–155; BP diastolic 45–74
[2019-12-27 06:42] LABS: HEMOGLOBIN 7.4 gm/dL (12.0-15.0); WBC 6.3 thou/uL (4.0-11.0)
[2019-12-27 06:43] LABS: MCH 27.5 pg (26.0-34.0); MCHC 32.2 g/dL (28.0-37.0); MCV 85.4 fL (80.0-100.0); RBC 2.69 mil/uL (4.20-5.00); RDW 16.6 % (10.5-14.5)
[2019-12-27 07:00] LABS: ALBUMIN 1.4 g/dL (3.4-5.0); ANION GAP 15 mmol/L (7-16); BUN 154 mg/dL (7-18); CALCIUM 7.6 mg/dL (8.5-10.1); CHLORIDE 110 mmol/L (98-107); CO2 18 mmol/L (21-32); CREATININE 5.2 mg/dL (0.6-1.0); DIRECT BILIRUBIN < 0.1 mg/dL (<0.1-0.2); GLUCOSE 156 mg/dL (74-106); POTASSIUM 3.7 mmol/L (3.5-5.1); SGOT 38 U/L (15-37); SGPT 102 U/L (30-65); SODIUM 143 mmol/L (136-145); TOTAL BILIRUBIN 0.2 mg/dL (0.2-1.0); TOTAL PROTEIN 5.3 g/dL (6.4-8.2); TRIGLYCERIDE 78 mg/dL (<150)
--- NOTE | 2019-12-27 08:45 | NUR ---
PATIENT PLACED ON 30 MIN SEDATION VACATION. PATIENT MOVES ABOUT, RAISING HEAD BUT WILL NOT FOLLOW COMMANDS. OPENS EYES. RESP RATE IN THE 20'S AND O2 SAT STABLE. MONITOR NSR WITH PAC'S. PLACED BACK ON PROPOFOL.
--- NOTE | 2019-12-27 09:55 | NUR ---
HANANE DIETRICH CALLED IN AND UPDATED TO PATIENT STATUS AND POC. QUESTIONS ADDRESSED AND REASSURANCE GIVEN.
--- NOTE | 2019-12-27 19:34 | NUR ---
PATIENT NOT PROGESSING TOWARDS EXTUBATION, REMAINS SEDATED AND TOLERATING VENT WITH NO CHANGE IN VENT SETTINGS TODAY. TOLERATING TUBE FEEDING AND URINE OUTPUT IS ADEQUATE VIA GROVES. MONITOR IS SB TO NSR WITH OCC PAC'S NOTED.
[2019-12-28] VITALS (24 sets, daily range): BP systolic 105–171; BP diastolic 57–100
--- NOTE | 2019-12-28 06:39 | NUR ---
SEDAVATION VACATION FROM POPOFOL A 20MCG AT 2103 TO 2113. PT DOESNT FOLLOW COMMANDS BU MOVES EXREMIIES AT RANDOM AND OPENS EYES AT RANDOM. PT HAS POSITIVE GAG AND COUGH REFLEX. PT IS AFEBRILE & STABLE. U/O OF 550 THIS SHIFT. 100ML OF LIQUID STOOL FROM FMS. WILL CONINUE TO CLOSELY MONITOR.
[2019-12-28 07:58] LABS: ALBUMIN 1.5 g/dL (3.4-5.0); CALCIUM 7.8 mg/dL (8.5-10.1); PHOSPHORUS 6.2 mg/dL (2.5-4.9); POTASSIUM 3.5 mmol/L (3.5-5.1)
--- NOTE | 2019-12-28 20:05 | NUR ---
PATIENT REMAINED INTUBATED ON AC 40%/20/500/6. PATIENT NOT FOLLOWING COMMANDS, REMAINS ON 20 OF PROPOFOL. HEPARIN GTT INITIATED AT 1300 WITH AN INITIAL BOLUS GIVEN. WILL MONITOR APTT Q 6HR PER PROTOCOL.
[2019-12-29] VITALS (26 sets, daily range): BP systolic 76–154; BP diastolic 39–85
[2019-12-29 06:31] LABS: HEMATOCRIT 23.5 % (37.0-47.0); HEMOGLOBIN 7.6 gm/dL (12.0-15.0); MCH 27.4 pg (26.0-34.0); MCHC 32.2 g/dL (28.0-37.0); RBC 2.77 mil/uL (4.20-5.00); WBC 9.6 thou/uL (4.0-11.0)
[2019-12-29 07:07] LABS: ALBUMIN 1.4 g/dL (3.4-5.0); CALCIUM 7.6 mg/dL (8.5-10.1); CREATININE 4.6 mg/dL (0.6-1.0); PHOSPHORUS 6.9 mg/dL (2.5-4.9); POTASSIUM 3.7 mmol/L (3.5-5.1)
--- NOTE | 2019-12-29 07:53 | NUR ---
1900. PT SEDATED. UNABLE TO FOLLOW COMMANDS. VSS. REMAINED ON VENT WITH FIO2 0 PEEP 6, R 20 AND TV 500. NO APPARENT DISCOMFORT NOTED. HEPARIN APTT INITALLY AT 2300 > 193. HELD FOR 1 HR, RATE ADJUSTED ACCORDING TO PROTOCOL. NEXT APTT WAS SET FOR 0600. LAB CALLED THIS AM ABOUT APTT STILL BEING ELEVATED AND WOULD LIKE A REDRAW. DAY SHIFT NURSE NOTIFIED. PT GROVES, AND FECAL MANAGEMENT INTACT. HGB STABLE THIS AM AT 7.6. SR ON THE MONITOR. WILL CONTINUE TO MONITOR AND FOLLOW POC.
--- NOTE | 2019-12-29 13:47 | NUR ---
discussed during los, remains on vent, wean trial possible soon, no dialysis, she from [facility]. will cont following as needed for dc needs.
--- NOTE | 2019-12-29 14:33 | NUR ---
PT FROM [facility] FAXED CLINICAL UPDATE SPOKE WITH MIKE IN ADM SHE RECEIVED UPDATE AND NOT WEEKEND DISCHARGE. DP TO FOLLOW.
--- NOTE | 2019-12-29 18:30 | NUR ---
Pt lightly sedated with Propofol. Opens eyes and weak hand grasps to request. Sinus rhythm/sinus bradycardia. Heparin gtt per protocol-see Heparin flow sheet.
[2019-12-30] VITALS (24 sets, daily range): BP systolic 102–141; BP diastolic 45–69
[2019-12-30 06:46] LABS: ALBUMIN 1.3 g/dL (3.4-5.0); CALCIUM 7.5 mg/dL (8.5-10.1); CREATININE 4.8 mg/dL (0.6-1.0); POTASSIUM 4.1 mmol/L (3.5-5.1)
--- NOTE | 2019-12-30 07:33 | NUR ---
PT NOT FOLLOWING COMMANDS ON SEDATION VACATION, ONLY RESPONSE TO PAIN. HEPARIN GTT TITRATION PER PROTOCCOL. PT TOLERATING TUBE FEED. PT HYPOTHERMIC LAST NIGHT. WARMING BLANKET ON AND NOW PT NORMOTHERMIC.ADEQUATE URINE OUTPUT. CONTINUE TO MONITOR. CHART CHECK.
[2019-12-30 08:21] LABS: BE(vivo) -8.2 mmol/L (-2 to +3); HCO3 15.2 mmol/L (22.0-26.0); PO2 144.7 mmHg (80.0-100.0); pH 7.428 (7.360-7.450)
[2019-12-30 08:23] LABS: PCO2 23.5 mmHg (35.0-45.0)
[2019-12-31] VITALS (24 sets, daily range): BP systolic 110–164; BP diastolic 56–81
--- NOTE | 2019-12-31 06:00 | NUR ---
REMAINS INTUBATED AND SEDATED WTTH PROPOFOL., HAD A LARGE SOFT SEMILIQUID STOOL. 1000 CC UO THIS SHIFT. SINUS RHYTHM. AFEBRILE. WILL CONT TO MONITOR EWMNINS A DNK '
--- NOTE | 2019-12-31 06:00 | NUR ---
REMAINS INTUBATED AND SEDATED WITH PROPOFOL GTT. HEPARIN GTT PER PROTOCAL NEURO UNCHANGED. FOLLOWS NO COMMANDS. REMAINS A DNR. HAD A LARGE SEMI LIQUID STOOL. AROUND FMS. 1000 CC UO THIS SHIFT. WILL CONT TO MONITOR.
[2019-12-31 06:54] LABS: CALCIUM 7.5 mg/dL (8.5-10.1); CREATININE 4.4 mg/dL (0.6-1.0); POTASSIUM 3.2 mmol/L (3.5-5.1)
--- NOTE | 2019-12-31 11:28 | NUR ---
ASSUMED CARE AT 0700, ASSESSMENT AND VITAL SIGNS COMPLETED PER ICU PROTOCOL. DR. JJ ROUNDED THIS AM, PLAN OF CARE DISCUSSED. DR. JJ WANTED THE PROPOFOL STOPPED D/T RENAL ISSUES AND THE FAMILY REFUSING DIALYSIS. RN WILL CONTINUE TO MONITOR.
[2019-12-31 12:45] LABS: BE(vivo) -8.5 mmol/L (-2 to +3); HCO3 14.9 mmol/L (22.0-26.0); PCO2 23.1 mmHg (35.0-45.0); PO2 148.1 mmHg (80.0-100.0); pH 7.427 (7.360-7.450)
[2020-01-01] VITALS (22 sets, daily range): BP systolic 139–168; BP diastolic 59–75
[2020-01-01 05:09] LABS: BE(vivo) -7.2 mmol/L (-2 to +3); PCO2 28.5 mmHg (35.0-45.0); PO2 158.9 mmHg (80.0-100.0); pH 7.393 (7.360-7.450); sO2 99.1 % (92.0-98.0)
[2020-01-01 05:28] LABS: CALCIUM 7.6 mg/dL (8.5-10.1); CREATININE 4.1 mg/dL (0.6-1.0); POTASSIUM 3.9 mmol/L (3.5-5.1)
[2020-01-01 05:31] LABS: ALBUMIN 1.5 g/dL (3.4-5.0); CALCIUM 7.4 mg/dL (8.5-10.1); CREATININE 4.1 mg/dL (0.6-1.0); PHOSPHORUS 6.2 mg/dL (2.5-4.9)
[2020-01-01 10:15] LABS: BE(vivo) -8.6 mmol/L (-2 to +3); HCO3 15.3 mmol/L (22.0-26.0); PCO2 25.2 mmHg (35.0-45.0); PO2 161.1 mmHg (80.0-100.0); sO2 99.1 % (92.0-98.0)
--- NOTE | 2020-01-01 19:27 | NUR ---
ASSUMED PATIENT CARE AT 0700. AWAKE SOME TIMES. TOLERTAED TF NO RESIDUAL NOTED. ON CPAP 2.5 HR. SLOWLY TOWARDS POC GOALS.
[2020-01-02] VITALS (25 sets, daily range): BP systolic 119–166; BP diastolic 52–120
--- NOTE | 2020-01-02 04:43 | NUR ---
PT INTUBATED BUT NOT SEDATED. SHE IS TOLERATING THE WENT WELL. ATIVAN GIVEN ONCE HIS SHIFT AT MIDNIGHT PT SLEPT AFTER ADMINISTRATION. PT HAD AN UNEVENTFUL NOC. GREAT U/O AVERAGE OF 50ML/HR. PT IS STABLE, WILL CONTINUE TO MINITOR
[2020-01-02 06:35] LABS: CALCIUM 7.8 mg/dL (8.5-10.1); CREATININE 3.7 mg/dL (0.6-1.0); POTASSIUM 4.1 mmol/L (3.5-5.1)
[2020-01-02 06:39] LABS: ALBUMIN 1.5 g/dL (3.4-5.0); CALCIUM 7.7 mg/dL (8.5-10.1); CREATININE 3.7 mg/dL (0.6-1.0); PHOSPHORUS 5.9 mg/dL (2.5-4.9)
--- NOTE | 2020-01-02 10:22 | NUR ---
WOUND CARE F/U; THE PATIENT IS IN COVID RESTRICTIONS. THE BALLASTER ASSESSES THE PATIENTS WOUND DAILY. TODAY THE RN REPORT WAS NON REMAKABLE. THE WOUNDS ARE VERY MINOR TO THE BILATERAL LE'S. RECOMMENDATIONS; CONTINUE CURRENT TREATMENT/RN TO NOTIFY WOUND CARE IF ANY CHANGES OR REASSESSMENT IS NEEDED. DISCUSSED WITH RN
--- NOTE | 2020-01-02 11:15 | NUR ---
pt remains on vent, discussed during los, possible weaning trials. cm provided verbal update to rwbr that pt not ready to dc.
--- NOTE | 2020-01-02 16:37 | NUR ---
PT VENILATED; VENT SETTINGS UNCHANGED. HEPARIN GTT IN PROGRESS, RATE CHANGES ARE BASED ON HOSPITAL PROTOCAL/POLICY. TUBE FEED AT GOAL RATE (35ML/HR), RESIDUALS WNL. ADEQUAE UOP. NEUROLOGICALLY DOES NOT FOLLOW COMMANDS/TRACK WITH EYES. WILL LOCALIZE PAIN. ATTEMPTED TO CALL DAUGHTER, NO ANSWER. PT HAS BEEN UPDATED AND EDUCATED ON PROGRESS AND POC. WILL CONTINUE TO MONITOR.
[2020-01-03] VITALS (27 sets, daily range): BP systolic 120–170; BP diastolic 48–113
[2020-01-03 05:28] LABS: ALBUMIN 1.5 g/dL (3.4-5.0); CREATININE 3.6 mg/dL (0.6-1.0); PHOSPHORUS 5.7 mg/dL (2.5-4.9); POTASSIUM 4.1 mmol/L (3.5-5.1)
--- NOTE | 2020-01-03 10:28 | NUR ---
Nutrition: REC increase Nepro to 40 mL/hr to better meet needs with D/C of propofol.
--- NOTE | 2020-01-03 16:55 | NUR ---
PT INTUBATED, NO SEDATION. VENT SETTINGS UNCHANGED TODAY. NO CPAP/WEANING. HEPARIN GTT INFUSING, BLOOD DRAWS SHOWS THERAPEUTIC APTT LEVELS. PT DOES NOT FOLLOW COMMANDS OR TRACK WITH EYES. DOES LOCALIZE PAIN AND MOVE ALL EXTREMITIES. TUBE FEED AT GOAL WITH RESIDUALS WNL. ADEQUATE UOP. FMS IN PLACE WITH SMALL AMOUNT OF DRAINAGE. PT UPDATED AND EDUCATED ON POC. WILL CONINTUE TO MONITOR.
[2020-01-04] VITALS (25 sets, daily range): BP systolic 98–175; BP diastolic 34–102
[2020-01-04 06:27] LABS: RDW 17.4 % (10.5-14.5)
[2020-01-04 06:28] LABS: MCH 27.3 pg (26.0-34.0); MCHC 31.5 g/dL (28.0-37.0); MCV 86.7 fL (80.0-100.0); RBC 2.2 mil/uL (4.20-5.00); WBC 8.7 thou/uL (4.0-11.0)
[2020-01-04 06:32] LABS: HEMATOCRIT 19.1 % (37.0-47.0)
[2020-01-04 07:13] LABS: ALBUMIN 1.5 g/dL (3.4-5.0); CALCIUM 8.4 mg/dL (8.5-10.1); CREATININE 3.6 mg/dL (0.6-1.0); PHOSPHORUS 6.3 mg/dL (2.5-4.9)
--- NOTE | 2020-01-04 07:44 | NUR ---
ASSUMED PT CARE AT 1900, PT IS DOESNT FOLLOW COMMANDS, LOCALIZES TO PAIN, PT IS DROWSY, NO SEDATION, NSR ON THE MONITOR WITH OCCASIONAL PVCS, PT ON A VENTILLATOR, FIO2 30%, O2SATS AT A 100%, CRITICAL H&H CALLED TO PRECISION INSTRUMENT MAKER, ORDERS RECEIVED TO TRANSFUSE 1 UNIT OF BLOOD, PT IS ON HEPARIN GTT, REMAINS ON RESTRAINS, BP ELEVATED IN THE MORNING, MEDICATED PRN, NO FURTHER ISSUES, FECAL MANAGEMENT AND GROVES IN PLACE, REMAINS AFEBRILE THROUGH THE NIGHT, REPORT PASSED TO THE DAY NURSE
[2020-01-04 09:33] LABS: BE(vivo) -7.5 mmol/L (-2 to +3); PO2 109.2 mmHg (80.0-100.0); pH 7.372 (7.360-7.450)
[2020-01-04 16:20] LABS: EOSINOPHILS 2.4 % (0.0-3.0); HEMOGLOBIN 6.5 gm/dL (12.0-15.0); RBC 2.32 mil/uL (4.20-5.00); WBC 5.2 thou/uL (4.0-11.0)
[2020-01-04 16:22] LABS: ABSOLUTE NEUTROPHILS 4.1 thou/uL (1.4-8.2); BASOPHILS 0.7 % (0.0-2.0); LYMPHOCYTES 11.4 % (24.0-44.0); MCH 27.8 pg (26.0-34.0); MCHC 32.7 g/dL (28.0-37.0); MCV 85.2 fL (80.0-100.0); MONOCYTES 6.5 % (1.0-8.0); RDW 16.8 % (10.5-14.5)
[2020-01-04 16:26] LABS: HEMATOCRIT 19.8 % (37.0-47.0)
[2020-01-04 17:14] LABS: ANISOCYTOSIS 2+; POLYCHROMASIA OCCASIONAL
[2020-01-04 17:15] LABS: PLATELET COUNT 106 thou/uL (150-400)
--- NOTE | 2020-01-04 19:24 | NUR ---
ASSUMED CARE AT SHIFT CHANGE, DROWSY AND DOESN'T FOLLOWS ANY COMMANDS. MEDICATED FOR LOW GRADE FEVER, AND OTHER VSS. CPAP TRIAL TODAY, AND PATIENT TOLERATED WELL. HEPARIN GTT, APTT AT 53.7, AND NO CHANGE MADE. I UNIT OF RBC INFUSED, HBG LEVEL UP TO 6.5, AND KARU NOTIFIED BY TEXTING. AND WILL CONTINUE WITH POC.
[2020-01-05] VITALS (24 sets, daily range): BP systolic 117–165; BP diastolic 45–74
[2020-01-05 05:36] LABS: BE(vivo) -7.5 mmol/L (-2 to +3); HCO3 16.8 mmol/L (22.0-26.0); PCO2 29.2 mmHg (35.0-45.0); PO2 112.7 mmHg (80.0-100.0); pH 7.378 (7.360-7.450); sO2 98.1 % (92.0-98.0)
[2020-01-05 06:45] LABS: ABSOLUTE NEUTROPHILS 6.2 thou/uL (1.4-8.2); BASOPHILS 0.5 % (0.0-2.0); EOSINOPHILS 1.8 % (0.0-3.0); HEMATOCRIT 23.2 % (37.0-47.0); HEMOGLOBIN 7.3 gm/dL (12.0-15.0); MCH 27.2 pg (26.0-34.0); MCHC 31.4 g/dL (28.0-37.0); MCV 86.7 fL (80.0-100.0); MONOCYTES 5.6 % (1.0-8.0); PLATELET COUNT 129 thou/uL (150-400); POLYS 84.1 % (36.0-66.0); RBC 2.68 mil/uL (4.20-5.00); RDW 17.2 % (10.5-14.5); WBC 7.3 thou/uL (4.0-11.0)
--- NOTE | 2020-01-05 06:50 | NUR ---
PT MAKING SLOW PROGRESS TOWARDS GOALS. ON VENTILATOR OVERNIGHT. LUNGS COARSE NORBERT, DIMINISHED THROUGHOUT. PT MAKES EYE CONTACT BUT DOES NOT FOLLOW ANY COMMANDS. CONTINUE TO MONITOR.
[2020-01-05 07:05] LABS: ALBUMIN 1.5 g/dL (3.4-5.0); CALCIUM 8.6 mg/dL (8.5-10.1); CREATININE 3.8 mg/dL (0.6-1.0); POTASSIUM 4.2 mmol/L (3.5-5.1); TOTAL BILIRUBIN 0.2 mg/dL (0.2-1.0); TOTAL PROTEIN 6.1 g/dL (6.4-8.2)
[2020-01-05 09:04] LABS: BE(vivo) -5.5 mmol/L (-2 to +3); HCO3 18.9 mmol/L (22.0-26.0); PCO2 32.3 mmHg (35.0-45.0); PO2 109.4 mmHg (80.0-100.0); pH 7.386 (7.360-7.450)
--- NOTE | 2020-01-05 11:30 | NUR ---
PATIENT PLACED ON CPAP AT 0750 THIS AM. AFIB NOTED WHEN PATIENT SUCTIONED BUT RETURNED TO NSR. ABG'S DRAWN. PATIENT NOTED TO HAVE INCREASED BP 150'S/80'S AND HEART RATE UP TO 120'S AND RESP RATE IN THE UPPER 20'S TO LOWER 30'S. MONITOR ST TO AFIB. DR LOZA INFORMED AND PATIENT PLACED BACK ON VENT.
--- NOTE | 2020-01-05 14:01 | NUR ---
discussed during los possible will need to look into ltac. pt remain on vent. with [employer] insurance would have to go after get trach for [employer] to approve ltca. will cont following as needed for dc need. covid +.
--- NOTE | 2020-01-05 19:00 | NUR ---
PATIENT PROGESSING SLOWLY SHE TOLERATED A SHORT CPAP TRIAL THIS AM. TOLERATING TUBE FEEDING WITH 5 ML OR LESS. URINE O/P ADEQUATE PER GROVES. MONITOR SR TO ST WITH FREQ PAC'S NOTED. PATIENT LOOKS AROUND AND TRACTS, MOVES SPONTANOUSLY AND HAS PURPOSEFUL MOVEMENT. BUT WILL NOT FOLLOW ANY COMMANDS. WILL CONTINUE TO MONITOR.
[2020-01-06] VITALS (29 sets, daily range): BP systolic 131–163; BP diastolic 50–74
[2020-01-06 05:58] LABS: HEMOGLOBIN 6.7 gm/dL (12.0-15.0); RDW 16.6 % (10.5-14.5)
[2020-01-06 06:00] LABS: MCH 27.7 pg (26.0-34.0); MCHC 31.9 g/dL (28.0-37.0); MCV 86.9 fL (80.0-100.0); RBC 2.42 mil/uL (4.20-5.00); WBC 7.1 thou/uL (4.0-11.0)
[2020-01-06 06:16] LABS: ALBUMIN 1.7 g/dL (3.4-5.0); CALCIUM 8.4 mg/dL (8.5-10.1); CREATININE 3.9 mg/dL (0.6-1.0); PHOSPHORUS 6.2 mg/dL (2.5-4.9); POTASSIUM 4.1 mmol/L (3.5-5.1)
--- NOTE | 2020-01-06 13:57 | NUR ---
SW reviewed chart and spoke with attending physician. Pt remains in Enhanced Isolation in ICU due to COVID-19. Vent weaning trials continue. Pt to have blood transfusion today. Plan to hopefully extubate pt soon. SW provided update to [facility] post-acute liaison. No weekend discharge planned. inventory planner to fax clinical updates to [facility] for review. [facility] is following to assist as needed with discharge planning.
--- NOTE | 2020-01-06 14:09 | NUR ---
FAXED CLINICAL UPDATE TO [facility] SPOKE WITH MIKE IN ADM SHE RECEIVED UPDATE AND WILL FOLLOW.
[2020-01-06 16:25] LABS: BE(vivo) -6.5 mmol/L (-2 to +3); HCO3 17.1 mmol/L (22.0-26.0); PCO2 27.1 mmHg (35.0-45.0); PO2 91.9 mmHg (80.0-100.0); pH 7.419 (7.360-7.450); sO2 97.3 % (92.0-98.0)
--- NOTE | 2020-01-06 16:30 | NUR ---
CPAP TRIAL FOR 8 HRS TODAY, WELL TOLERATED. ACCEPTABLE ABG'S. SINCE LATE IN DAY, PT REPLACED ON ASSIST CONTROL PER RESPIRATORY THERAPY.
[2020-01-07] VITALS (16 sets, daily range): BP systolic 144–177; BP diastolic 55–73
[2020-01-07 05:28] LABS: HEMATOCRIT 24.2 % (37.0-47.0); HEMOGLOBIN 7.7 gm/dL (12.0-15.0); MCH 27.5 pg (26.0-34.0); MCV 86.1 fL (80.0-100.0); RBC 2.81 mil/uL (4.20-5.00); RDW 16.3 % (10.5-14.5); WBC 9.2 thou/uL (4.0-11.0)
[2020-01-07 10:09] LABS: ALBUMIN 1.8 g/dL (3.4-5.0); CALCIUM 8.9 mg/dL (8.5-10.1); CREATININE 4.2 mg/dL (0.6-1.0); POTASSIUM 4.4 mmol/L (3.5-5.1)
--- NOTE | 2020-01-07 19:02 | NUR ---
cpap trial, well tolerated. resp even and unlabored, no distress. stable vitals signs.
[2020-01-08] VITALS (19 sets, daily range): BP systolic 66–165; BP diastolic 30–111
[2020-01-08 06:21] LABS: ALBUMIN 1.5 g/dL (3.4-5.0); CALCIUM 8.6 mg/dL (8.5-10.1); CREATININE 4.3 mg/dL (0.6-1.0); PHOSPHORUS 4.7 mg/dL (2.5-4.9); POTASSIUM 4.4 mmol/L (3.5-5.1)
--- NOTE | 2020-01-08 07:31 | NUR ---
Assessment and interventions documented. Patient became tachypneic and heart rate increased during the night had to restart sedation. Patient does well sedated. No other events throughout the night. After medication given patient was able to tolerate tube. Patient is stable however not progressing towards goals.
--- NOTE | 2020-01-08 11:40 | NUR ---
currently on cpap trial- st-140's, rr-32, sao2-92% with very labored breathing. suctioned obtaining very scant to no secretions. notified rt, they suctioned pt again. see mars for morphine administration. With additional suctioning and morphine resp status nonlabored/improved.
--- NOTE | 2020-01-08 15:10 | NUR ---
alisa trotter, daughter/dpoa/legal guardian inquired regarding pt status, updated including opening eyes, not following commands, medications given for sedation while on vent and labored resp. discussed failing kidneys. alisa is requesting hospice. she stated a physician called from the hospital. requesting return call from md (dr. rich). dr. rich paged with call immediately returned. updated on family requesting hospice/comfort care. dr. pineda notified of plan for comfort care/hospice. dr. sidhu notified notified of plan for comfort care. he stated he would place orders.
--- NOTE | 2020-01-08 19:30 | NUR ---
ASSUMED CARE OF PT. REMAINS A DNR AND WILL SOON GO ON COMFORT CARE. REMAINS INTUBATED AND LIGHTLY SEDATED WTTH PROPOFOL GTT. FOLLOWS NO COMMANDS FMS IN PLACE. UO ADEQ. IN ISOLATION FOR COVID 19. WILL CONT TO MONITOR
--- NOTE | 2020-01-08 20:00 | NUR ---
SPOKE WITH PTS DAUGHTER BAILEY SUERO CONCERNING COMFORT CARE. SHE WANTS PT TO DO THIS SOON POSSIBLE.I MADE AWARE TO THEM ONLY 2 FAMILY MEMBERS COULD BE PRESENT AND COULD ONLY SEE PT FROM THE WINDOW. THEY UNDERSTOOD.
--- NOTE | 2020-01-08 20:30 | NUR ---
PTS SISTER BAILEY SUERO CALLED. SHE WANTS PT TO GO ON COMFORT CARE SOON POSSIBLE. HER AND HER SISTER MARIPOSA SUERO WILL COME IN TONIGHT AND SEE PT ONLY FROM THE WINDOW. SUPERVISIOR AND SECURITY ALERTED. WILL CONT TO MONITOR
--- NOTE | 2020-01-08 21:20 | NUR ---
PT EXTUBATED placed on comfort care. 2 SISTERS present at window. will cobnt to monitor.
--- NOTE | 2020-01-08 21:30 | NUR ---
WE PLACED THE PHONE IN PTS EAR SO BAILEY SUERO DAUGHTER TO SPEAK TO HER MOTHER.
--- NOTE | 2020-01-08 21:40 | NUR ---
PT WENT ASYSTOLE AT 2139. PRONOUNCED BY 2 RN'S MYSELF AND BRIDGER MORALES RN. SEE REPORT FOR FURTHER INFO.
--- NOTE | 2020-01-09 11:57 | NUR ---
LATE NOTE: SPIRITUAL CARE CONSULT [id number] WAS UNABLE TO BE COMPLETED. IT WAS PROCESED ON 01/08/20 AT 1903 HOURS AND THE PATIENT AT 2140 THAT SAME THURSDAY EVENING. THE PATIENT HAD BEEN LAST VISITED, OUTSIDE [facility], AND PRAYED FOR BY THIS WELL DIGGER ON THURSDAY, JANUARY 07, 2020.
== END 2020-01-08 21:40 | DRG 870 ==
LOC: ER 17:23 → EROBS 19:06 → ICU 19:06
PROVIDERS: Emergency Medicine; Hospitalist; Internal Medicine Nephrology; Internal Medicine Pulmonary Disease; Nurse Practitioner; Nurse Practitioner Family; Pediatrics; Specialist; ADMIT Hospitalist; ATTEND Hospitalist
DX: A41.9 Sepsis, unspecified organism (principal); U07.1 COVID-19; J96.01 Acute respiratory failure with hypoxia; J18.9 Pneumonia, unspecified organism; R65.21 Severe sepsis with septic shock; I50.31 Acute diastolic (congestive) heart failure; G92 Toxic encephalopathy; N17.9 Acute kidney failure, unspecified; I13.0 Hypertensive heart and chronic kidney disease with heart failure and stage 1 through stage 4 chronic kidney disease, or unspecified chronic kidney disease; G40.802 Other epilepsy, not intractable, without status epilepticus; I42.9 Cardiomyopathy, unspecified; N39.0 Urinary tract infection, site not specified; S27.309A Unspecified injury of lung, unspecified, initial encounter; E11.40 Type 2 diabetes mellitus with diabetic neuropathy, unspecified; E11.22 Type 2 diabetes mellitus with diabetic chronic kidney disease; N18.3 Chronic kidney disease, stage 3 (moderate); E78.5 Hyperlipidemia, unspecified; Z79.4 Long term (current) use of insulin; Z79.82 Long term (current) use of aspirin; Z79.899 Other long term (current) drug therapy; Z88.5 Allergy status to narcotic agent; Z88.2 Allergy status to sulfonamides; Z88.8 Allergy status to other drugs, medicaments and biological substances; R79.89 Other specified abnormal findings of blood chemistry; K21.9 Gastro-esophageal reflux disease without esophagitis; Z87.01 Personal history of pneumonia (recurrent); Z96.659 Presence of unspecified artificial knee joint; R74.0 Nonspecific elevation of levels of transaminase and lactic acid dehydrogenase [LDH]; B96.20 Unspecified Escherichia coli [E. coli] as the cause of diseases classified elsewhere; Z66 Do not resuscitate; I27.20 Pulmonary hypertension, unspecified; X58.XXXA Exposure to other specified factors, initial encounter; Y93.89 Activity, other specified; Y92.89 Other specified places as the place of occurrence of the external cause; Y99.8 Other external cause status; D63.8 Anemia in other chronic diseases classified elsewhere; F03.90 Unspecified dementia, unspecified severity, without behavioral disturbance, psychotic disturbance, mood disturbance, and anxiety; R00.1 Bradycardia, unspecified; Z51.5 Encounter for palliative care
CPT/HCPCS: 10078